=== PATIENT | female | born 1945 | race African-American/Black ===

== ENCOUNTER 2019-05-03 12:29 | Observation (INO) | payer MEDICARE, OTHER ==
[2019-05-03 13:41] VITALS: BP 116/71
[2019-05-03 13:47] VITALS: BP 116/71
[2019-05-03 15:31] LABS: EOSINOPHILS # (AUTO) 0.3 (0.0-0.4); EOSINOPHILS % 11.2 % (0.0-6.0); HEMATOCRIT 37.3 % (34.2-44.1); HEMOGLOBIN 11.8 g/dL (12.0-16.0); LYMPHOCYTES # (AUTO) 1.3 (1.0-3.2); LYMPHOCYTES % 42.4 % (18.0-39.1); MEAN CORPUSCULAR HEMOGLOBIN 23.5 pg (28-32); MEAN CORPUSCULAR HGB CONC 31.6 g/dL (31-35); MEAN CORPUSCULAR VOLUME 74.2 fL (81-99); MONOCYTES # (AUTO) 0.2 (0.2-0.8); MONOCYTES % 7.8 % (4.4-11.3); NEUTROPHILS # (AUTO) 1.1 (2.1-6.9); NEUTROPHILS % 37.3 % (38.7-80.0); PLATELET COUNT 207 x10e3/uL (140-360); RED BLOOD COUNT 5.03 x10e6/uL (3.6-5.1); RED CELL DISTRIBUTION WIDTH 15.6 % (11.7-14.4)
[2019-05-03 15:40] LABS: INR 0.93
[2019-05-03 15:46] VITALS: BP 116/71
[2019-05-03 15:48] LABS: ALANINE AMINOTRANSFERASE 25 IU/L (0-55); ALBUMIN 3.9 g/dL (3.5-5.0); ALBUMIN/GLOBULIN RATIO 1.5 (0.8-2.0); ALKALINE PHOSPHATASE 57 IU/L (40-150); ANION GAP 13.1 mmol/L (8-16); BLOOD UREA NITROGEN 15 mg/dL (7-26); BUN/CREATININE RATIO 17 (6-25); CALCIUM 9.6 mg/dL (8.4-10.2); CARBON DIOXIDE 26 mmol/L (22-29); CHLORIDE 106 mmol/L (98-107); CREATININE, SERUM 0.88 mg/dL (0.57-1.11); EST GLOMERULAR FILTRATION RATE > 60 ML/MIN (60-); GLUCOSE 101 mg/dL (74-118); POTASSIUM 4.1 mmol/L (3.5-5.1); SODIUM 141 mmol/L (136-145)
[2019-05-03] MEDS ORDERED: SODIUM CHLORIDE 0.9% 250ML 250 ML ONE (15:56)
[2019-05-03] MEDS: DOXYCYCLINE 100MG/NS 100ML 100 ML IV SCH (16:01)
[2019-05-03] MEDS: METHYLPREDNISOLONE SOD SUCC 125 MG/2ML VIAL IV SCH (16:01)
--- NOTE | 2019-05-03 16:05 | Diagnostic Imaging Report ---
EXAM: CHEST 2 VIEWS DATE: 05/03/2019 1:42 PM INDICATION: COPD, shortness of breath COMPARISON: None IMPRESSION: There is elevation of the left hemidiaphragm and increased opacities present within the left lower lung zone which may reflect atelectasis and/or small volume of pleural fluid. An underlying airspace process cannot be entirely excluded. There is blunting of the right costophrenic angle and a trace right pleural effusion is possible. There is no evidence for large focal consolidation or pneumothorax. Multiple surgical clips are noted projecting over the left hilum. The cardiac silhouette is not enlarged. No acute osseous abnormalities identified. Signed by: Dr. Apolinar Rankin MD on 05/03/2019 4:01 PM
--- NOTE | 2019-05-03 19:57 | NUR ---
RECEIVE DPT IN BED AOX3 RESPIRATIONS ARE EVEN AND UNLABORED DIMINISHED BREATH SOUND AT LEFT LUNG CALL SPEARS WITH IN REACH CONTINUE TO MONITOR
[2019-05-03 20:15] VITALS: BP 116/71
[2019-05-03 20:34] VITALS: BP 119/72
[2019-05-04] VITALS (7 sets, daily range): BP systolic 110–122; BP diastolic 59–67
[2019-05-04] MEDS: DOXYCYCLINE 100MG/NS 100ML 100 ML IV SCH (02:00)
[2019-05-04] MEDS: METHYLPREDNISOLONE SOD SUCC 125 MG/2ML VIAL IV SCH (02:35)
[2019-05-04] MEDS: ZOLPIDEM TARTRATE 5 MG TAB PO PRN ×2 (04:07→22:30)
--- NOTE | 2019-05-04 06:12 | NUR ---
PT RESTED DURING THE NIGHT .DENIES PAIN .CALL LIGHT WITH IN REACH .CONTINUE TO MONITOR
[2019-05-04] MEDS: ALBUTEROL SULF 0.083% NEB SOLN 3 ML NEB NEB PRN ×2 (07:00→11:38)
--- NOTE | 2019-05-04 07:04 | NUR ---
BEDSIDE REPORT GIVEN TO THE ONCOMING NURSE
--- NOTE | 2019-05-04 07:05 | NUR ---
walking rounds completed, received change of shift report from fmd teacher RN, pt in stable condition. will continue to monitor.
[2019-05-04] MEDS: BUDESONIDE/FORMOTEROL 160/4.5MCG INHALER INH SCH ×3 (07:10→19:00)
--- NOTE | 2019-05-04 07:29 | NUR ---
Dr. Lizama arrived on the unit; informed him that the prior day shift RN stated Dr. Lim would be consulted for pt, but as of now no order was placed in the computer. Dr. Lizama states he will assess the pt first.
[2019-05-04] MEDS: PANTOPRAZOLE SOD 40 MG TABEC PO SCH (07:30)
[2019-05-04] MEDS ORDERED: OMEPRAZOLE 20 MG CAP PO SCH (07:30)
[2019-05-04] MEDS ORDERED: AZITHROMYCIN 500MG/NS 250 ML 250 ML IV SCH (08:00)
--- NOTE | 2019-05-04 08:26 | NUR ---
pt awake, alert, oriented, being taken off unit for CT scan; left in stable condition.
[2019-05-04] MEDS ORDERED: CEFTRIAXONE SOD 1 GM/NS 50 ML 50 ML IV SCH (09:00)
--- NOTE | 2019-05-04 09:12 | Pre Op History & Physical ---
CHIEF COMPLAINT: Wheezing, difficulty breathing, and congestion. HISTORY OF PRESENT ILLNESS: The patient is a 73-year-old woman. She had a lobectomy around 20 years ago for a fungal infection in [place]. She also has COPD. She require hospitalization at [facility] 6 months ago for COPD exacerbation. She uses Brovana and budesonide at home twice a day to a nebulizer. She also uses rescue inhalers. She has oxygen at home. Yesterday, she came to the office complaining of worsening dyspnea and cough. She did not have any phlegm production. She had no fevers. She did not have chest pain. PAST SURGICAL HISTORY: 1. Status post lobectomy. 2. Status post hysterectomy. PAST MEDICAL HISTORY: Chronic obstructive pulmonary disease. SOCIAL HISTORY: The patient quit smoking. She is not an active drinker. FAMILY HISTORY: Family history is noncontributory. ALLERGIES: NO KNOWN DRUG ALLERGIES. REVIEW OF SYSTEMS: The patient is afebrile. The patient has some chronic weight loss over the years. She does not have sore throat. She has noted coughing or wheezing. She has no chest pain. She does not have any abdominal pain. She has no nausea or vomiting. She has no leg edema. PHYSICAL EXAMINATION: VITAL SIGNS: The patient is afebrile. The blood pressure is 122/60 and the saturation is 95% on 2 L. The pulse is 86. HEENT: Shows no facial swelling or erythema. CARDIAC: Reveals a regular rate and rhythm with normal S1, S2. There are no murmurs or rubs. LUNGS: Auscultation of lungs reveals a prolonged expiratory phase bilaterally. There is some wheezing. ABDOMEN: Soft, nontender. There is no rebound or guarding. EXTREMITIES: Show no leg edema or calf tenderness. There is no cyanosis or clubbing. SKIN: Shows no rashes. NEUROLOGICAL: Shows no focal abnormalities. LABORATORY DATA: White blood cell count is 2.95 and hemoglobin 11.8. The platelet count is 207. BUN to creatinine ratio is normal. The other electrolytes are within normal limits. RADIOGRAPHIC DATA: Chest x-ray shows some clips over the left hilum from prior surgery. There is some atelectasis in the left lower lung zone. IMPRESSION: 1. Chronic obstructive pulmonary disease with acute exacerbation. 2. Prior lobectomy for a fungal infection. PLAN: 1. Antibiotics and IV Solu-Medrol. 2. Bronchodilators. 3. CT scan of chest. 4. Assess nutritional status and give Ensure with each meal. 5. Continue oxygen. MD NALDO Plata/CHARLEEN /[id number]
--- NOTE | 2019-05-04 09:55 | Diagnostic Imaging Report ---
EXAMINATION: CT scan of the chest with contrast. TECHNIQUE: Spiral CT images of the chest were performed from the lung apices to the level of the adrenal glands after the intravenous administration of 100 cc Isovue-370. Coronal and sagittal reformatted images were obtained. COMPARISON: Chest radiograph 05/03/2019 CLINICAL HISTORY:Lower lobe infiltrate, prior lobectomy for fungal infection DISCUSSION: LINES/TUBES: None. LUNGS AND AIRWAYS: Advanced upper lung predominant emphysematous changes. Postsurgical changes of partial left pneumonectomy with associated volume loss and hemidiaphragmatic elevation, which accounts for the left lung base opacity described on the comparison chest radiograph. There is mild basal pleural thickening; however, no consolidation, sizable effusion, or pneumothorax. There is compensatory hyperinflation of the right lung which is otherwise without consolidation, bronchiectasis, or gross mass lesion. There is a small amount of mucinous debris in the trachea and right mainstem bronchus. Airways are otherwise patent. PLEURA: Left basal pleural thickening. No pleural effusion or pneumothorax. HEART AND MEDIASTINUM: Visualized thyroid gland is unremarkable. There is atherosclerotic calcification of the aortic arch, coronary arteries, and great vessel origins. Incidental note of a common origin of the innominate and left common carotid artery from the aortic arch. The pulmonary outflow tract is of normal caliber. There is no ectasia or aneurysmal dilatation of the thoracic aorta. Normal heart size without pericardial effusion. Multiple mediastinal surgical clips LYMPH NODES: No axillary, hilar, or mediastinal lymphadenopathy. ABDOMEN: The visualized portions of the liver, spleen, pancreatic tail, and left kidney are unremarkable. BONES AND SOFT TISSUES: No osseous destructive lesion or focal soft tissue abnormality. IMPRESSION: Postsurgical changes of partial left pneumonectomy with associated volume loss, ipsilateral mediastinal shift, and left basal pleural thickening with hemidiaphragmatic elevation, accounting for the left lower lung zone opacities described on the comparison chest radiograph. No consolidative pneumonia. Advanced upper lung predominant emphysematous changes. Atherosclerotic vascular disease. Signed by: Dr. Blair Soto M.D. on 05/04/2019 9:52 AM
--- NOTE | 2019-05-04 11:41 | NUR ---
pt c/o trouble breathing; called RT Kody to come to bedside for breathing treatment. pt's O2 sat 94% on 2L NC.
[2019-05-04] MEDS: METHYLPREDNISOLONE SOD SUCC 40 MG/ML VIAL 1ML IV SCH (14:40)
[2019-05-04] MEDS ORDERED: IOPAMIDOL 370 MG/ML 200 ML INFUS..BTL INJ ONE (14:43)
[2019-05-04] MEDS: CEFTRIAXONE SOD 1 GM/NS 50 ML 50 ML IV SCH (14:43)
--- NOTE | 2019-05-04 16:04 | NUR ---
spoke with PT who states pt was able to ambulate 140 feet, desatting to 91% but with rest and breathing exercises came up to 95%. pt was on 2L NC.
[2019-05-04 17:00] LABS: CLARITY,URINE SL CLOUDY (CLEAR); COLOR,URINE YELLOW (YELLOW)
[2019-05-04 17:01] LABS: BILIRUBIN,URINE NEGATIVE (NEGATIVE); KETONES,URINE NEGATIVE (NEGATIVE); LEUKOCYTE ESTERASE ,URINE TRACE (NEGATIVE); NITRITE,URINE NEGATIVE (NEGATIVE); PROTEIN,URINE DIPSTICK NEGATIVE (NEGATIVE); URINE UROBILINOGEN 0.2 mg/dL (0.2 - 1)
[2019-05-04 17:14] LABS: AMORPHOUS SEDIMENT,URINE MODERATE (FEW); BACTERIA,URINE MODERATE /HPF; EPITHELIAL CELLS,URINE FEW /LPF
--- NOTE | 2019-05-04 20:44 | NUR ---
RECEIVED PT IN BED AOX3 .RESPIRATIONS ARE EVEN AND UNLABORED .DENIES PAIN CALL LIGHT WITH IN REACH .CONTINUE TO MONITOR
[2019-05-05] VITALS (9 sets, daily range): BP systolic 112–122; BP diastolic 57–69
[2019-05-05] MEDS: METHYLPREDNISOLONE SOD SUCC 40 MG/ML VIAL 1ML IV SCH ×2 (02:37→14:42)
[2019-05-05] MEDS: CEFTRIAXONE SOD 1 GM/NS 50 ML 50 ML IV SCH ×2 (02:37→14:30)
--- NOTE | 2019-05-05 05:36 | NUR ---
PT RESTED DURING THE NIGHT AND DENIES PAIN .CALL LIGHT WITH IN REACH .CONTINUE TO MONITOR
[2019-05-05 05:48] LABS: EOSINOPHILS # (AUTO) 0.2 (0.0-0.4); EOSINOPHILS % 4.2 % (0.0-6.0); HEMATOCRIT 34.5 % (34.2-44.1); HEMOGLOBIN 10.7 g/dL (12.0-16.0); LYMPHOCYTES # (AUTO) 0.5 (1.0-3.2); LYMPHOCYTES % 8.6 % (18.0-39.1); MEAN CORPUSCULAR HEMOGLOBIN 22.8 pg (28-32); MEAN CORPUSCULAR VOLUME 73.6 fL (81-99); MONOCYTES # (AUTO) 0.2 (0.2-0.8); MONOCYTES % 3.3 % (4.4-11.3); NEUTROPHILS # (AUTO) 4.8 (2.1-6.9); NEUTROPHILS % 83.6 % (38.7-80.0); PLATELET COUNT 198 x10e3/uL (140-360); RED BLOOD COUNT 4.69 x10e6/uL (3.6-5.1); RED CELL DISTRIBUTION WIDTH 15.4 % (11.7-14.4)
[2019-05-05 06:07] LABS: ALANINE AMINOTRANSFERASE 22 IU/L (0-55); ALBUMIN 3.6 g/dL (3.5-5.0); ALBUMIN/GLOBULIN RATIO 1.5 (0.8-2.0); ALKALINE PHOSPHATASE 47 IU/L (40-150); ANION GAP 12.4 mmol/L (8-16); BLOOD UREA NITROGEN 20 mg/dL (7-26); BUN/CREATININE RATIO 24 (6-25); CALCIUM 9.4 mg/dL (8.4-10.2); CARBON DIOXIDE 23 mmol/L (22-29); CHLORIDE 107 mmol/L (98-107); CREATININE, SERUM 0.83 mg/dL (0.57-1.11); EST GLOMERULAR FILTRATION RATE > 60 ML/MIN (60-); GLUCOSE 129 mg/dL (74-118); POTASSIUM 4.4 mmol/L (3.5-5.1); SODIUM 138 mmol/L (136-145)
[2019-05-05] MEDS: ALBUTEROL SULF 0.083% NEB SOLN 3 ML NEB NEB PRN ×3 (06:30→21:00)
[2019-05-05] MEDS: BUDESONIDE/FORMOTEROL 160/4.5MCG INHALER INH SCH ×2 (06:41→20:20)
--- NOTE | 2019-05-05 07:09 | NUR ---
BEDSIDE REPORT GIVEN TO THE ONCOMING NURSE
--- NOTE | 2019-05-05 07:30 | NUR ---
MD IN TO SEE PATIENT, NEW ORDER RECEIVED.
[2019-05-05] MEDS: PANTOPRAZOLE SOD 40 MG TABEC PO SCH (07:44)
--- NOTE | 2019-05-05 10:14 | Progress Note ---
DATE: Pulmonary Critical Care Progress Note SUBJECTIVE: The patient is better. She has less wheezing and less cough. She still has some mild dyspnea. PHYSICAL EXAMINATION: VITAL SIGNS: The patient is afebrile. The vital signs are stable. HEENT: Shows no facial swelling or erythema. CARDIAC: Reveals a regular rate and rhythm with normal S1, S2. There are no murmurs or rubs. LUNGS: Auscultation of lungs reveals prolonged expiratory phase with a few faint wheezes. ABDOMEN: Soft, nontender. There is no rebound or guarding. EXTREMITIES: Show no leg edema. IMPRESSION: 1. Chronic obstructive pulmonary disease with acute exacerbation. 2. Prior lobectomy for fungal infection. 3. Moderate protein-calorie malnutrition. 4. Microcytic anemia secondary to chronic blood loss. PLAN: 1. Continue IV Solu-Medrol. 2. Continue antibiotics. 3. Continue nutritional supplementation. 4. The patient should have a GI evaluation, possibly as an outpatient. MD NALDO Plata/CHARLEEN /[id number]
--- NOTE | 2019-05-05 11:26 | NUR ---
PATIENT AMBULATED IN HALLWAY WITH PHYSICAL THERAPY, NO DISTRESS NOTED. WILL CLOSELY MONITOR.
[2019-05-05] MEDS ORDERED: AZITHROMYCIN 500MG/NS 250 ML 250 ML IV SCH (12:00)
--- NOTE | 2019-05-05 12:05 | NUR ---
DC PLAN: PT 2 DAY OBS. MCV 73.6, HGB 10.7. MD ORDERED GASTRO CONSULT. ORDER TO PLAN DC IN AM. SENT TO R1. PCTX case account ending in [id number] has been reviewed and completed by [facility] Physicians. Service Line: Level of Care (LOC) / Admission Status Review Initial patient type was submitted as: IO - Initial Observation PAS Recommendation: OU
--- NOTE | 2019-05-05 15:35 | NUR ---
IV INFILTRATED, REMOVED WITH TIP INTACT. NEW IV 20 GAUGE INSERTED TO LEFT FOREARM, PATIENT TOLERATED PROCEDURE WELL.
--- NOTE | 2019-05-05 16:01 | Consultation ---
DATE OF CONSULTATION: 05/05/2019 GI Consult Note REASON FOR CONSULT: Microcytic anemia. HISTORY OF PRESENTING ILLNESS: A 73 years old very pleasant, Afro-[place] female, who has a history of COPD, got admitted in the hospital with the COPD exacerbation. She is currently being treated under the supervision of Pulmonary Service. She has a history of lobectomy 20 years ago for some pulmonary fungal infection. The patient's blood work in the hospital revealed a hemoglobin of 10.7, hematocrit 34.5 with MCV of 73.6. GI is being consulted for evaluation of microcytic anemia. The patient at the moment her symptom is limited to the respiratory system. She denies any nausea, vomiting, diarrhea, or constipation. She has had a routine screening colonoscopy 10 years ago. The patient is not sure if she has had any polyp removed. Family history is negative for any colon cancer. She denies any epigastric pain, no prior history of peptic ulcer disease. She does not use any NSAIDs, on chronic basis. The patient never had any upper endoscopy. Weight remains stable. REVIEW OF SYSTEMS: A 12-point system reviewed, symptomatology is limited to respiratory system only. PAST SURGICAL HISTORY: Status post lobectomy, hysterectomy. PAST MEDICAL HISTORY: COPD. SOCIAL HISTORY: Quit smoking many years ago. Seldom drinks alcohol. Never used any illicit drugs. FAMILY HISTORY: Negative for any GI or PSYCHOLOGICAL SCIENCE PROFESSOR malignancies. ALLERGIES: NO KNOWN DRUG ALLERGIES. HOME MEDICATIONS: 1. Albuterol inhaler. 2. Azithromycin 500 mg IV daily. 3. Budesonide/formoterol inhaler. 4. Ceftriaxone 1 g q.12 hours. 5. Methylprednisolone 30 mg IV q.12 hours. 6. Pantoprazole 40 mg daily. 7. Zolpidem 5 mg at bedtime p.r.n. PHYSICAL EXAMINATION: VITAL SIGNS: Temperature 97.9, pulse 77, respirations 16, blood pressure 116/61, oxygen saturation 100% on 2 L of nasal cannula. GENERAL: Not in any acute distress, lip pursing. HEENT: Oral mucosa is moist. Mildly anicteric sclerae. No oral lesions. CVS: S1 and S2 regular. No gallop, murmur, or rubs. CHEST: Bilateral occasional scattered rhonchi. ABDOMEN: Soft, nondistended, and nontender. No palpable mass or hernia. Positive bowel sounds. EXTREMITIES: Warm. No leg edema. LABORATORY DATA: WBC 5.72, hemoglobin dropped from 11.8 to 10.7, hematocrit 34.5, MCV 73.6, and platelet count 198. Electrolytes normal. BUN 20 and creatinine 0.83. Liver enzymes normal. Influenza type A and B is negative. PT 13 and [address] 0[address]. [address] CT showed a postsurgical changes of partial left pneumonectomy with associated volume loss. Ipsilateral mediastinal shift and left basal pleural thickening with hemidiaphragmatic elevation, accounting for left lower lobe zone opacities described on comparison chest radiograph: 1. No consolidative pneumonia. 2. Advance upper lung predominant emphysematous changes. 3. Atherosclerotic vascular disease. IMPRESSION: 1. Microcytic anemia. 2. No gross gastrointestinal bleeding. 3. Chronic obstructive pulmonary disease exacerbation, currently being treated with antibiotic, bronchodilators as well as steroids. Pulmonary service is following the patient. PLAN: From GI standpoint, we will check stool for Hemoccult blood. I have given her my business card. Upper endoscopy as well as colonoscopy for evaluation of microcytic anemia will be done as an outpatient once the patient is stable from respiratory standpoint. I thank Dr. Lizama for allowing me to participate in the care of this patient. Shaq Swenson MD SA/CHARLEEN /[id number]
--- NOTE | 2019-05-05 17:47 | NUR ---
Nutrition Intervention Note RD Recommendation(s) for Physician: -Continue Ensure clear with each meal -Continue regular diet Plan of Care: RD following, monitoring for tolerance and adequacy Nutrition reason for involvement: consult for nutrition assessment RD Assessment (05/05/19) Pt is a 73 year old female admitted with COPD exacerbation. Pt stated she typically eats 50% of her meals. Per documentation in chart, pt consumed 75% of meals yesterday and today. Pt has been drinking Ensure clear during admission and stated she usually drinks Ensure at home. Offered pt Ensure Enlive, but pt wanted to continue receiving Ensure clear. No wt loss reported. Pt does not currently have a weight in chart; therefore, RD weighed pt using bedscale at time of visit. Pt had a bedscale wt of 85 lbs, but pt mentioned this was not accurate since she had weighed 97 lbs 2 days ago. Pt showed signs of mild/moderate muscle depletion in temporal, clavicle, and lower extremity regions. No N/V/D/C or chewing/swallowing issues at this time. Principal Problems/Diagnoses: COPD exacerbation PMH: COPD GI: flat, soft, nontender abdomen Skin: intact Labs: (05/05/19) Glucose 129 Meds: methylprednisolone, azithromycin, pantoprazole Ht: 63 inches Wt: 97 lbs (per pt) pt does not have a weight in chart for this admission BMI: 17.2 kg/m2 IBW: 115 lbs Malnutrition Evaluation (05/05/19) The patient does not meet criteria for a specified degree of malnutrition at this time. Will re-evaluate at follow-up as appropriate. Nutrition Prescription (Diet Order): Regular diet with Ensure clear TID Estimated Nutritional Needs: 1323 1543 calories/day (30-35 kcal/kg) Weight used: 97 lbs (pt stated wt) 66-88 g protein/day (1.5-2 g pro/kg) Weight used: 97 lbs (pt stated wt) Diet Adequacy: Meeting calorie needs, Meeting protein needs at this time per documentation of PO intake in chart Tolerance: Tolerating PO Diet Education Needs Assessment: Diet education not indicated; patient on regular diet. Nutrition Care Level: low Nutrition Diagnosis: Underweight related to predicted h/o inadequate energy intake as evidenced by BMI <18.5 kg/m2. Goal: Patient will meet 75-100% of estimated needs by follow up Progress: N/A Interventions: -General healthful diet, Commercial beverage Monitoring/Evaluation: -Total energy intake, Total protein intake, Liquid supplement, Weight change Signed: Mone Guevara RD, LD
--- NOTE | 2019-05-05 19:13 | NUR ---
BED SIDE REPORT GIVEN TO ON COMING NURSE.
--- NOTE | 2019-05-05 20:20 | NUR ---
PATIENT RESTING IN BED, NO SIGNS OF DISTRESS NOTED. NASAL CANNULA IS INTACT AND RUNNING AT 2 LITERS AND PATIENT VOICES NO PAIN AT THIS TIME. BED IS IN LOWEST POSITION, BOTH SIDE RAILS ARE UP, CALL LIGHT IS WITHIN EASY REACH, WILL CONTINUE TO MONITOR.
[2019-05-05] MEDS ORDERED: ACETAMINOPHEN 325 MG TAB PO PRN (21:00)
[2019-05-06 00:19] VITALS: BP 121/68
[2019-05-06] MEDS: ALBUTEROL SULF 0.083% NEB SOLN 3 ML NEB NEB PRN ×4 (00:40→11:06)
[2019-05-06] MEDS: CEFTRIAXONE SOD 1 GM/NS 50 ML 50 ML IV SCH (02:38)
[2019-05-06] MEDS: METHYLPREDNISOLONE SOD SUCC 40 MG/ML VIAL 1ML IV SCH (02:38)
[2019-05-06 04:10] VITALS: BP 119/63
[2019-05-06] MEDS: BUDESONIDE/FORMOTEROL 160/4.5MCG INHALER INH SCH (07:06)
--- NOTE | 2019-05-06 07:18 | NUR ---
PATIENT IN BED WITH HEAD OF BED ELEVATED RECEIVING NEB TREATMENT, NO DISTRESS NOTED. BED IN LOWER POSITION, CALL LIGHT AT REACH.
[2019-05-06 07:28] VITALS: BP 126/65
[2019-05-06 07:45] VITALS: BP 126/65
[2019-05-06] MEDS: PANTOPRAZOLE SOD 40 MG TABEC PO SCH (07:55)
--- NOTE | 2019-05-06 11:16 | NUR ---
PATIENT HAS A DISCHARGE ORDER. AWAITING FOR TRANSPORTATION. OUT OF BED TO CHAIR WATCHING TV. CALL LIGHT AT REACH.
[2019-05-06 11:33] VITALS: BP 132/64
--- NOTE | 2019-05-06 12:05 | NUR ---
PATIENT DISCHARGED HOME. DISCHARGE INSTRUCTIONS, PRESCRIPTIONS, AND FOLLOW UP GIVEN TO PATIENT AND DAUGHTER, THEY VERBALIZED UNDERSTANDING. IV TO LEFT FOREARM REMOVED WITH TIP INTACT. ALL PERSONAL ITEMS TAKEN WITH PATIENT. LEFT UNIT PER WHEEL CHAIR TO FRONT LOBBY IN STABLE CONDITION.
--- NOTE | 2019-05-07 04:18 | Discharge Summary ---
DISCHARGE DIAGNOSES: 1. Chronic obstructive pulmonary disease with acute exacerbation. 2. Anemia from chronic blood loss. CONSULTING PHYSICIAN: Dr. Shaq Swenson, of Gastroenterology. RADIOGRAPHIC DATA: CT scan of the chest showed postsurgical changes from a prior left pneumonectomy with associated volume loss. There was some left basal pleural thickening and hemidiaphragmatic elevation. There were no acute infiltrates. There were emphysematous changes in the upper lobes bilaterally. DISCHARGE MEDICATIONS: 1. Symbicort 2 puffs q.12. 2. Albuterol nebulizer as needed q.4. 3. Albuterol rescue inhaler 2 puffs q.4 hours as needed. 4. Prednisone taper. 5. Z-Nic. HISTORY OF PRESENT ILLNESS: The patient is a 73-year-old woman. She had a prior lobectomy 20 years ago for fungal infection in [place]. She has a history of COPD. She required hospitalization six months ago. She uses Brovana and budesonide nebulizers at home. She uses rescue inhalers as well as albuterol for rescue through a nebulizer at home. She also has oxygen at home. She comes in complaining of worsening dyspnea and cough. She did not respond to antibiotics and steroids as an outpatient. HOSPITAL COURSE: The patient was admitted. She received intravenous Solu-Medrol along with bronchodilators and antibiotics. She gradually improved with this. Her lab results showed anemia with microcytosis. She was evaluated by GI and arrangements were made for her to follow up as an outpatient for a workup for microcytic anemia. The patient was also evaluated by Nutrition. The patient received nutritional supplements. She felt better at the time of discharge. DISPOSITION: The patient will be discharged home. She will follow up with Dr. Lizama and Dr. Leela causey. Wallace Lizama MD [facility]/MODL /[id number]
--- OUTSIDE RECORDS SUMMARY | 2019-05-12 10:59 | XMS REPORT ---
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 Allergies, Adverse Reactions, Alerts Allergy Name Allergy Type Status Severity Reaction(s) Onset Date Inactive Date Treating Clinician Comments No Known Allergies DA Active U 2019-01-11 00:00:00 No Known Allergies DA Active U 2018-10-20 00:00:00 No Known Allergies DA Active U 2013-04-10 00:00:00 Medications This patient has no known medications. Encounters Start Date/Time End Date/Time Encounter Type Admission Type Attending Clinicians Care Facility Care Department Encounter ID 2017-06-09 08:36:42 2017-06-09 08:36:42 Emergency [facility] [id number] 2017-06-09 07:43:30 2017-06-09 07:43:30 Emergency [facility] [id number] 2017-06-09 07:02:43 2017-06-09 07:02:43 Emergency [facility] [id number] Results Test Description Test Time Test Comments Text Results Atomic Results Result Comments CT CHEST W 2019-05-04 09:35:00 [place] [address] Patient Name: BRII FAITH MR #: [id number] : 1945 Age/Sex: 73/F Req #: [id number] Adm Physician: AIYANA HOLLIDAY MD Ordered by: AIYANA HOLLIDAY MD Report #: [id number] Location: MED/SURG3 Room/Bed: 296-1 Procedure: [id number] CT/CT CHEST W Exam Date: 05/04/19 Exam Time: 0842 REPORT STATUS: Signed EXAMINATION: CT scan of the chest with contrast. TECHNIQUE: Sp iral CT images of the chest were performed from the lung apices to the level of the adrenal glands after the intravenous administration of 100 cc Isovue- 370. Coronal and sagittal reformatted images were obtained. COMPARISON: Chest radiograph 05/03/2019 CLINICAL HISTORY:Lower lobe infiltrate, prior lobectomy for fungal infection DISCUSSION: LINES/TUBES: None. LUNGS AND AIRWAYS: Advanced upper lung predominant emphysematous changes. Postsurgical changes of partial left pneumonectomy with associated volume loss and hemidiaphragmatic elevation, which accounts for the left lung base opacity described on the comparison chest radiograph. There is mild basal pleural thickening; however, no consolidation, sizable effusion, or pneumothorax. There is compensatory hyperinflation of the right lung which is otherwise without consolidation, bronchiectasis, or gross mass lesion. There is a small amount of mucinous debris in the trachea and right mainstem bronchus. Airways are otherwise patent. PLEURA: Left basal pleural thickening. No pleural effusion or pneumothorax. HEART AND MEDIASTINUM: Visualized thyroid gland is unremarkable. There is atherosclerotic calcification of the aortic arch, coronary arteries, and great vessel origins. Incidental note of a common origin of the innominate and left common carotid artery from the aortic arch. The pulmonary outflow tract is of normal caliber. There is no ectasia or aneurysmal dilatation of the thoracic aorta. Normal heart size without pericardial effusion. Multiple mediastinal surgical clips LYMPH NODES: No axillary, hilar, or mediastinal lymphadenopathy. ABDOMEN: The visualized portions of the liver, spleen, pancreatic tail, and left kidney are unremarkable. BONES AND SOFT TISSUES: No osseous destructive lesion or focal soft tissue abnormality. IMPRESSION: Postsurgical changes of partial left pneumonectomy with associated volume loss, ipsilateral medi astinal shift, and left basal pleural thickening with hemidiaphragmatic elevation, accounting for the left lower lung zone opacities described on the comparison chest radiograph. No consolidative pneumonia. Advanced upper lung predominant emphysematous changes. Atherosclerotic vascular disease. Signed by: Dr. Tashia Soto M.D. on 05/04/2019 9:52 AM Dictated By: TASHIA SOTO MD 1 Transcribed By: LUIS on 05/04/19951 COPY TO: AIYANA HOLLIDAY MD CHEST 2 VIEWS 2019-05-03 15:56:00 [place] [address] Patient Name: BRII FAITH MR #: [id number] : 1945 Age/Sex: 73/F Req #: [id number] Adm Physician: AIYANA HOLLIDAY MD Ordered by: AIYANA HOLLIDAY MD Report #: [id number] Location: MED/SURG3 Room/Bed: [facility] Procedure: [id number] DX/CHEST 2 VIEWS Exam Date: 05/03/19 Exam Time: 1540 REPORT STATUS: Signed EXAM: CHEST 2 VIEWS DATE: 05/03/2019 1:42 PM INDICATION: COPD, shortness of breath COMPARISON: None IMPRESSION: There is elevation of the left hemidiaphragm and increased opacities present within the left lower lung zone which may reflect atelectasis and/or small volume of pleural fluid. An underlying airspace process cannot be entirely excluded. There is blunting of the right costophrenic angle and a trace right pleural effusion is possible. There is no evidence for large focal consolidation or pneumothorax. Multiple surgical clips are noted projecting over the left hilum. The cardiac silhouette is not enlarged. No acute osseous abnormalities identified. Signed by: Dr. Apolinar Rankin MD on 05/03/2019 4:01 PM Dictated By: APOLINAR RANKIN MD 1601 Transcribed By: LUIS on 05/03/19 1601 COPY TO: AIYANA HOLLIDAY MD B-TYPE NATRIURETIC PEPTIDE 2019-01-19 08:10:00 B-TYPE NATRIURETIC PEPTIDE (test code=BNP) 15.44 pgram/mL 0-100 BASIC METABOLIC [id number] 07:27:00* Test Item Value Reference Range Comments SODIUM (test code=NA) 134 mmol/L 136-145 POTASSIUM (test code=K) 4.8 mmol/L 3.5-5.1 CHLORIDE (test code=CL) 100.0 mmol/L 98-107 CARBON DIOXIDE (test code=CO2) 27.0 mmol/L 21-32 ANION GAP (test code=GAP) 11.8 10-20 GLUCOSE (test code=GLU) 158 mg/dL 74-106 BLOOD UREA NITROGEN (test code=BUN) 18 mg/dL 7-18 GLOMERULAR FILTRATION RATE (test code=GFR) > 60 mL/min >=60 Estimated GFR by using Modified MDRD formula.Chronic kidney disease is defined as either kidney damageor GFR <60 mL/min/1.73 m2 for >3 months. CREATININE (test code=CREAT) 0.70 mg/dL 0.55-1.02 Note change in reference range due to change in reagent. BUN/CREATININE RATIO (test code=BUN/CREA) 24.8 10-20 CALCIUM (test code=CA) 9.4 mg/dL 8.5-10.1 BASIC METABOLIC [id number] 07:20:00* Test Item Value Reference Range Comments SODIUM (test code=NA) 134 mmol/L 136-145 POTASSIUM (test code=K) 4.8 mmol/L 3.5-5.1 CHLORIDE (test code=CL) 100.0 mmol/L 98-107 CARBON DIOXIDE (test code=CO2) mmol/L 21-32 ANION GAP (test code=GAP) 10-20 GLUCOSE (test code=GLU) mg/dL 74-106 BLOOD UREA NITROGEN (test code=BUN) mg/dL 7-18 GLOMERULAR FILTRATION RATE (test code=GFR) mL/min >=60 CREATININE (test code=CREAT) mg/dL 0.55-1.02 BUN/CREATININE RATIO (test code=BUN/CREA) 10-20 CALCIUM (test code=CA) mg/dL 8.5-10.1 CBC W/AUTO [id number] 07:15:00* Test Item Value Reference Range Comments WHITE BLOOD CELL (test code=WBC) 4.6 K/mm3 4.5-12.5 RED BLOOD CELL (test code=RBC) 4.77 mill/mm3 3.7-5.2 HEMOGLOBIN (test code=HGB) 11.1 gram/dL 11.5-15.5 HEMATOCRIT (test code=HCT) 34.9 % 36.0-46.0 MEAN CELL VOLUME (test code=MCV) 73.2 fL 80-98 MEAN CELL HGB (test code=MCH) 23.3 picogram 27.0-33.0 MEAN CELL HGB CONCETRATION (test code=MCHC) 31.8 gram/dL 33.0-36.0 RED CELL DISTRIBUTION WIDTH (test code=RDW) 15.4 % 11.6-16.2 RED CELL DISTRIBUTION WIDTH SD (test code=RDW-SD) 39.8 fL 37.0-51.0 PLATELET COUNT (test code=PLT) 253 K/mm3 150-450 MEAN PLATELET VOLUME (test code=MPV) 11.4 fL 6.7-11.0 NEUTROPHIL % (test code=NT%) 83.7 % 39.0-69.0 IMMATURE GRANULOCYTE % (test code=IG%) 0.7 % 0.0-5.0 LYMPHOCYTE % (test code=LY%) 11.3 % 25.0-55.0 MONOCYTE % (test code=MO%) 4.3 % 0.0-10.0 EOSINOPHIL % (test code=EO%) 0.0 % 0.0-5.0 BASOPHIL % (test code=BA%) 0.0 % 0.0-1.0 NUCLEATED RBC % (test code=NRBC%) 0.0 % 0-0 NEUTROPHIL # (test code=NT#) 3.85 K/mm3 1.8-7.7 IMMATURE GRANULOCYTE # (test code=IG#) 0.03 x10 3/uL 0-0.03 LYMPHOCYTE # (test code=LY#) 0.52 K/mm3 1.0-5.0 MONOCYTE # (test code=MO#) 0.20 K/mm3 0-0.8 EOSINOPHIL # (test code=EO#) 0.00 K/mm3 0.0-0.5 BASOPHIL # (test code=BA#) 0.00 K/mm3 0.0-0.2 NUCLEATED RBC # (test code=NRBC#) 0.00 K/mm3 0.0-0.1 MANUAL DIFF REQUIRED (test code=MDIFF) NO BASIC METABOLIC [id number] 07:20:00* Test Item Value Reference Range Comments SODIUM (test code=NA) 136 mmol/L 136-145 POTASSIUM (test code=K) 4.7 mmol/L 3.5-5.1 CHLORIDE (test code=CL) 100.0 mmol/L 98-107 CARBON DIOXIDE (test code=CO2) 29.0 mmol/L 21-32 ANION GAP (test code=GAP) 11.7 10-20 GLUCOSE (test code=GLU) 130 mg/dL 74-106 BLOOD UREA NITROGEN (test code=BUN) 25 mg/dL 7-18 RESULT VERIFIED BY REPEAT ANALYSIS GLOMERULAR FILTRATION RATE (test code=GFR) > 60 mL/min >=60 Estimated GFR by using Modified MDRD formula.Chronic kidney disease is defined as either kidney damageor GFR <60 mL/min/1.73 m2 for >3 months. CREATININE (test code=CREAT) 0.80 mg/dL 0.55-1.02 Note change in reference range due to change in reagent. BUN/CREATININE RATIO (test code=BUN/CREA) 31.3 10-20 CALCIUM (test code=CA) 9.5 mg/dL 8.5-10.1 BASIC METABOLIC [id number] 06:39:00* Test Item Value Reference Range Comments SODIUM (test code=NA) 136 mmol/L 136-145 POTASSIUM (test code=K) 4.7 mmol/L 3.5-5.1 CHLORIDE (test code=CL) 100.0 mmol/L 98-107 CARBON DIOXIDE (test code=CO2) mmol/L 21-32 ANION GAP (test code=GAP) 10-20 GLUCOSE (test code=GLU) mg/dL 74-106 BLOOD UREA NITROGEN (test code=BUN) mg/dL 7-18 GLOMERULAR FILTRATION RATE (test code=GFR) mL/min >=60 CREATININE (test code=CREAT) mg/dL 0.55-1.02 BUN/CREATININE RATIO (test code=BUN/CREA) 10-20 CALCIUM (test code=CA) mg/dL 8.5-10.1 CBC W/AUTO [id number] 05:26:00* Test Item Value Reference Range Comments WHITE BLOOD CELL (test code=WBC) 4.7 K/mm3 4.5-12.5 RED BLOOD CELL (test code=RBC) 4.67 mill/mm3 3.7-5.2 HEMOGLOBIN (test code=HGB) 11.0 gram/dL 11.5-15.5 HEMATOCRIT (test code=HCT) 34.7 % 36.0-46.0 MEAN CELL VOLUME (test code=MCV) 74.3 fL 80-98 MEAN CELL HGB (test code=MCH) 23.6 picogram 27.0-33.0 MEAN CELL HGB CONCETRATION (test code=MCHC) 31.7 gram/dL 33.0-36.0 RED CELL DISTRIBUTION WIDTH (test code=RDW) 15.4 % 11.6-16.2 RED CELL DISTRIBUTION WIDTH SD (test code=RDW-SD) 40.8 fL 37.0-51.0 PLATELET COUNT (test code=PLT) 224 K/mm3 150-450 MEAN PLATELET VOLUME (test code=MPV) 10.0 fL 6.7-11.0 NEUTROPHIL % (test code=NT%) 85.0 % 39.0-69.0 IMMATURE GRANULOCYTE % (test code=IG%) 0.4 % 0.0-5.0 LYMPHOCYTE % (test code=LY%) 9.5 % 25.0-55.0 MONOCYTE % (test code=MO%) 5.1 % 0.0-10.0 EOSINOPHIL % (test code=EO%) 0.0 % 0.0-5.0 BASOPHIL % (test code=BA%) 0.0 % 0.0-1.0 NUCLEATED RBC % (test code=NRBC%) 0.0 % 0-0 NEUTROPHIL # (test code=NT#) 4.01 K/mm3 1.8-7.7 IMMATURE GRANULOCYTE # (test code=IG#) 0.02 x10 3/uL 0-0.03 LYMPHOCYTE # (test code=LY#) 0.45 K/mm3 1.0-5.0 MONOCYTE # (test code=MO#) 0.24 K/mm3 0-0.8 EOSINOPHIL # (test code=EO#) 0.00 K/mm3 0.0-0.5 BASOPHIL # (test code=BA#) 0.00 K/mm3 0.0-0.2 NUCLEATED RBC # (test code=NRBC#) 0.00 K/mm3 0.0-0.1 MANUAL DIFF REQUIRED (test code=MDIFF) NO BASIC METABOLIC [id number] 08:29:00* Test Item Value Reference Range Comments SODIUM (test code=NA) 136 mmol/L 136-145 POTASSIUM (test code=K) 4.4 mmol/L 3.5-5.1 CHLORIDE (test code=CL) 102.0 mmol/L 98-107 CARBON DIOXIDE (test code=CO2) 27.0 mmol/L 21-32 ANION GAP (test code=GAP) 11.4 10-20 GLUCOSE (test code=GLU) 137 mg/dL 74-106 BLOOD UREA NITROGEN (test code=BUN) 19 mg/dL 7-18 GLOMERULAR FILTRATION RATE (test code=GFR) > 60 mL/min >=60 Estimated GFR by using Modified MDRD formula.Chronic kidney disease is defined as either kidney damageor GFR <60 mL/min/1.73 m2 for >3 months. CREATININE (test code=CREAT) 0.70 mg/dL 0.55-1.02 Note change in reference range due to change in reagent. BUN/CREATININE RATIO (test code=BUN/CREA) 26.8 10-20 CALCIUM (test code=CA) 9.6 mg/dL 8.5-10.1 BASIC METABOLIC [id number] 08:20:00* Test Item Value Reference Range Comments SODIUM (test code=NA) 136 mmol/L 136-145 POTASSIUM (test code=K) 4.4 mmol/L 3.5-5.1 CHLORIDE (test code=CL) 102.0 mmol/L 98-107 CARBON DIOXIDE (test code=CO2) mmol/L 21-32 ANION GAP (test code=GAP) 10-20 GLUCOSE (test code=GLU) mg/dL 74-106 BLOOD UREA NITROGEN (test code=BUN) mg/dL 7-18 GLOMERULAR FILTRATION RATE (test code=GFR) mL/min >=60 CREATININE (test code=CREAT) mg/dL 0.55-1.02 BUN/CREATININE RATIO (test code=BUN/CREA) 10-20 CALCIUM (test code=CA) mg/dL 8.5-10.1 CBC W/AUTO [id number] 08:00:00* Test Item Value Reference Range Comments WHITE BLOOD CELL (test code=WBC) 4.4 K/mm3 4.5-12.5 RED BLOOD CELL (test code=RBC) 4.68 mill/mm3 3.7-5.2 HEMOGLOBIN (test code=HGB) 11.1 gram/dL 11.5-15.5 HEMATOCRIT (test code=HCT) 35.0 % 36.0-46.0 MEAN CELL VOLUME (test code=MCV) 74.8 fL 80-98 MEAN CELL HGB (test code=MCH) 23.7 picogram 27.0-33.0 MEAN CELL HGB CONCETRATION (test code=MCHC) 31.7 gram/dL 33.0-36.0 RED CELL DISTRIBUTION WIDTH (test code=RDW) 15.5 % 11.6-16.2 RED CELL DISTRIBUTION WIDTH SD (test code=RDW-SD) 41.2 fL 37.0-51.0 PLATELET COUNT (test code=PLT) 232 K/mm3 150-450 MEAN PLATELET VOLUME (test code=MPV) 10.4 fL 6.7-11.0 NEUTROPHIL % (test code=NT%) 88.7 % 39.0-69.0 IMMATURE GRANULOCYTE % (test code=IG%) 0.2 % 0.0-5.0 LYMPHOCYTE % (test code=LY%) 8.4 % 25.0-55.0 MONOCYTE % (test code=MO%) 2.7 % 0.0-10.0 EOSINOPHIL % (test code=EO%) 0.0 % 0.0-5.0 BASOPHIL % (test code=BA%) 0.0 % 0.0-1.0 NUCLEATED RBC % (test code=NRBC%) 0.0 % 0-0 NEUTROPHIL # (test code=NT#) 3.93 K/mm3 1.8-7.7 IMMATURE GRANULOCYTE # (test code=IG#) 0.01 x10 3/uL 0-0.03 LYMPHOCYTE # (test code=LY#) 0.37 K/mm3 1.0-5.0 MONOCYTE # (test code=MO#) 0.12 K/mm3 0-0.8 EOSINOPHIL # (test code=EO#) 0.00 K/mm3 0.0-0.5 BASOPHIL # (test code=BA#) 0.00 K/mm3 0.0-0.2 NUCLEATED RBC # (test code=NRBC#) 0.00 K/mm3 0.0-0.1 MANUAL DIFF REQUIRED (test code=MDIFF) NO - XR CHEST 1 [id number] 08:05:00 FAX: Mark Layne MD [place]: B St: ADM FAX: Nicole Harrison NP [phone] Name: BRII FAITH [facility] : 1945 Age/S: 73/F [address] [facility] Unit #: [id number] Loc: [address] [place] [id number] Phys: Nicole Harrison NP Acct: [id number] Dis Date: Status: ADM IN PHONE #: [phone] Exam Date: 01/14/2019 0746 FAX #: [phone] Reason: COPD EXAMS: CPT CODE: [id number] XR CHEST 1 V [id number] REASON FOR EXAM: COPD Exam Order Date: 01/14/2019 5:00 AM Ordering Eileen: Nicole Harrison NP PROCEDURE: - XR CHEST 1 V COMPARISON: Frontal chest x-ray January 11, 2019 CT of the chest October 11, 2018 was also reviewed FINDINGS: Right lung is hyperinflated and there is flattening of the right hemidiaphragm, similar to the previous exam. Postsurgical changes of left upper lobectomy with elevation of the left hemidiaphragm are redemonstrated. Both lungs are clear. Cardiomediastinal silhouette is normal in size for technique. Atherosclerotic disease in the aortic arch is unchanged. Musculoskeletal structures are within normal limits. The visualized upper abdomen is within normal limits. IMPRESSION: No acute cardiopulmonary process. Persistent hype rexpansion of the lungs with flattening of the diaphragm may represent a n air-trapping process. Stable postsurgical changes of left upper lobect norman. at 0805 * * Reported and signed by: Donavan Bautista MD CC: Mark Lim; Nicole Harrison NP Technologist: Kailee Choe (R); RT NIRAJ(R) Trnscrd Date/Time/By: 01/14/2019 (804) : By: [email or web address] [facility] Print D/T: S: 01/14/2019 (0809) PAGE 1 Signed Report BASIC METABOLIC [id number] 08:06:00* Test Item Value Reference Range Comments SODIUM (test code=NA) 141 mmol/L 136-145 POTASSIUM (test code=K) 4.5 mmol/L 3.5-5.1 CHLORIDE (test code=CL) 109.0 mmol/L 98-107 CARBON DIOXIDE (test code=CO2) 27.0 mmol/L 21-32 ANION GAP (test code=GAP) 9.5 10-20 GLUCOSE (test code=GLU) 90 mg/dL 74-106 BLOOD UREA NITROGEN (test code=BUN) 18 mg/dL 7-18 GLOMERULAR FILTRATION RATE (test code=GFR) > 60 mL/min >=60 Estimated GFR by using Modified MDRD formula.Chronic kidney disease is defined as either kidney damageor GFR <60 mL/min/1.73 m2 for >3 months. CREATININE (test code=CREAT) 0.80 mg/dL 0.55-1.02 Note change in reference range due to change in reagent. BUN/CREATININE RATIO (test code=BUN/CREA) 22.5 10-20 CALCIUM (test code=CA) 8.8 mg/dL 8.5-10.1 BASIC METABOLIC [id number] 07:57:00* Test Item Value Reference Range Comments SODIUM (test code=NA) 141 mmol/L 136-145 POTASSIUM (test code=K) 4.5 mmol/L 3.5-5.1 CHLORIDE (test code=CL) 109.0 mmol/L 98-107 CARBON DIOXIDE (test code=CO2) mmol/L 21-32 ANION GAP (test code=GAP) 10-20 GLUCOSE (test code=GLU) mg/dL 74-106 BLOOD UREA NITROGEN (test code=BUN) mg/dL 7-18 GLOMERULAR FILTRATION RATE (test code=GFR) mL/min >=60 CREATININE (test code=CREAT) mg/dL 0.55-1.02 BUN/CREATININE RATIO (test code=BUN/CREA) 10-20 CALCIUM (test code=CA) mg/dL 8.5-10.1 CBC W/AUTO [id number] 07:47:00* Test Item Value Reference Range Comments WHITE BLOOD CELL (test code=WBC) 3.7 K/mm3 4.5-12.5 RED BLOOD CELL (test code=RBC) 4.26 mill/mm3 3.7-5.2 HEMOGLOBIN (test code=HGB) 10.0 gram/dL 11.5-15.5 HEMATOCRIT (test code=HCT) 32.4 % 36.0-46.0 MEAN CELL VOLUME (test code=MCV) 76.1 fL 80-98 MEAN CELL HGB (test code=MCH) 23.5 picogram 27.0-33.0 MEAN CELL HGB CONCETRATION (test code=MCHC) 30.9 gram/dL 33.0-36.0 RED CELL DISTRIBUTION WIDTH (test code=RDW) 15.9 % 11.6-16.2 RED CELL DISTRIBUTION WIDTH SD (test code=RDW-SD) 43.3 fL 37.0-51.0 PLATELET COUNT (test code=PLT) 189 K/mm3 150-450 MEAN PLATELET VOLUME (test code=MPV) 10.1 fL 6.7-11.0 NEUTROPHIL % (test code=NT%) 44.6 % 39.0-69.0 IMMATURE GRANULOCYTE % (test code=IG%) 0.3 % 0.0-5.0 LYMPHOCYTE % (test code=LY%) 41.9 % 25.0-55.0 MONOCYTE % (test code=MO%) 8.9 % 0.0-10.0 EOSINOPHIL % (test code=EO%) 3.5 % 0.0-5.0 BASOPHIL % (test code=BA%) 0.8 % 0.0-1.0 NUCLEATED RBC % (test code=NRBC%) 0.0 % 0-0 NEUTROPHIL # (test code=NT#) 1.65 K/mm3 1.8-7.7 IMMATURE GRANULOCYTE # (test code=IG#) 0.01 x10 3/uL 0-0.03 LYMPHOCYTE # (test code=LY#) 1.55 K/mm3 1.0-5.0 MONOCYTE # (test code=MO#) 0.33 K/mm3 0-0.8 EOSINOPHIL # (test code=EO#) 0.13 K/mm3 0.0-0.5 BASOPHIL # (test code=BA#) 0.03 K/mm3 0.0-0.2 NUCLEATED RBC # (test code=NRBC#) 0.00 K/mm3 0.0-0.1 MANUAL DIFF REQUIRED (test code=MDIFF) NO LACTIC [id number] 06:02:00* Test Item Value Reference Range Comments LACTIC ACID (test code=LACT) 0.9 mmol/L 0.4-1.9 LACTIC [id number] 03:07:00* Test Item Value Reference Range Comments LACTIC ACID (test code=LACT) 2.1 mmol/L 0.4-1.9 Results called to [id number] by CARIN 01/12/19 0307Critical results verified and read back by Nurse? Y SPECIMEN COMMENTS: repeat if >2 repeat in 3 hours.ARTERIAL BLOOD [id number] 21:32:00* Test Item Value Reference Range Comments ARTERIAL BLOOD GAS PH (test code=PHA) 7.38 7.35-7.45 ARTERIAL BLOOD GAS PCO2 (test code=PCO2A) 29.3 mm Hg 35-45 ARTERIAL BLOOD GAS PO2 (test code=PO2A) 77.9 mmHg 80-100 BICARBONATE TOTAL HCO3 (test code=HCO3) 16.8 mmol/L 23.0-27.0 BASE EXCESS (test code=GERARDO) -7.1 mmol/L -3.0-5.0 Results called to and read back by [employer] : - 01/11/2019; by mr ABG O2 SATURATION (test code=SATA) 93.8 % 90.0-98.0 ABG TYPE (test code=TYPEA) Arterial FIO2 (test code=FIO2A) 32.0 ABG SITE (test code=SITEA) Lt BRACHIAL ARTERY MODIFIED ALLENS (test code=MODALL) Yes CHECK PERFORMED HEMATOCRIT (test code=HCT/ABG) 35 % 35-47 TOTAL HGB (test code=THB) 11.8 gram/dL 11.5-15.5 HGB O2 SAT (test code=HBOSAT) 93.1 % 94.00-98.00 CARBOXYHEMOGLOBIN (test code=HOHGBT) 0.1 %totalHg 0.5-1.5 Results called to and read back by [employer] : - 01/11/2019; by mr METHEMOGLOBIN (test code=METHGB) 0.6 % 0.0-1.50 O2 CONTENT (test code=O2CT) 15.5 % vol 18.0-22.0 - XR CHEST 1 [id number] 17:05:00 FAX: Mark Layne MD [place]: [place] St: REG FAX: Johnathan Davila [phone] Name: BRII FAITH [facility] : 1945 Age/S: 73/F [address] [facility] [address] Unit #: [id number] Loc: [address] Phys: Johnathan Davila MD [place], [place] [address] Acct: [id number] Dis Date: Status: REG ER PHONE #: Exam Date: 01/11/2019 2538 FAX #: Reason: Shortness of Breath EXAMS: CPT CODE: [id number] XR CHEST 1 V [id number] REASON FOR EXAM: Shortness of Breath Exam Order Date: 01/11/2019 4:14 PM Ordering M.Ellis: Johnathan Davila MD PROCEDURE: - XR CHEST 1 V COMPARISON: Noncontrast CT chest October 11, 2018 FINDINGS: The lungs are hyperinflated with emphysematous changes in both lungs. Surgical clips overlying the left hilum are redemonstrated, likely from prior left upper lobectomy. No acute airspace disease is seen. Cardiac mediastinal silhouette is at the upper limits of normal in size. Atherosclerosis is redemonstrated in the aorta. No acute bone around it. Visualized upper abdomen is within normal limits. IMPRESSION: No acute cardiopulmonary process. Stable post surgical changes of left upper lobectomy. at 1708 Reported and signed by: Donavan Bautista MD CC: Mark Lim; Johnathan Davila MD Technologist: June Avila RT(R)(CT) Trnscrd Date/Time/By: 01/11/2019 (3072) : By: [email or web address] [facility] Print D/T: S: 01/11/2019 (8976) P AGE 2 Signed Report LACTIC [id number] 16:49:00* Test Item Value Reference Range Comments LACTIC ACID (test code=LACT) 0.9 MMOL/L 0.4-1.9 SPECIMEN COMMENTS: repeat if >2 repeat in 3 hours.BASIC METABOLIC PANEL 2019-01-11 16:46:00* Test Item Value Reference Range Comments SODIUM (test code=NA) 136 mmol/L 128-145 POTASSIUM (test code=K) 3.9 mmol/L 3.5-5.1 CHLORIDE (test code=CL) 100.0 mmol/L 98-107 CARBON DIOXIDE (test code=CO2) 27.9 mmol/L 22-29 ANION GAP (test code=GAP) 12 mmol/L 10-20 GLUCOSE (test code=GLU) 102 mg/dL 70-110 BLOOD UREA NITROGEN (test code=BUN) 15 mg/dL 7-22 GLOMERULAR FILTRATION RATE (test code=GFR) > 60 mL/min >=60 Estimated GFR by using Modified MDRD formula.Chronic kidney disease is defined as either kidney damageor GFR <60 mL/min/1.73 m2 for >3 months. CREATININE (test code=CREAT) 0.78 mg/dL 0.55-1.3 BUN/CREATININE RATIO (test code=BUN/CREA) 19.2 10-20 CALCIUM (test code=CA) 9.5 mg/dL 8.0-10.5 [id number] 16:46:00* Test Item Value Reference Range Comments TROPONIN-I (test code=TROPI) 0.03 ng/mL 0.00-0.056 B-TYPE NATRIURETIC [id number] 16:45:00* Test Item Value Reference Range Comments B-TYPE NATRIURETIC PEPTIDE (test code=BNP) 38.4 pg/mL 0-100 PROTHROMBIN [id number] 16:44:00* Test Item Value Reference Range Comments PROTHROMBIN TIME PATIENT (test code=PTP) 10.3 seconds 9.0-13.0 INTERNATIONAL NORMAL RATIO (test code=INR) 1.1 0.8-1.2 The therapeutic range for oral anticoagulant therapy [employer] is an international normalized ratio (INR)of between 2.0 and 3.0. The recommended therapeutic INRrange for various clinical situations is listed below: Clinical Situation INR range Pulmonary e mbolism treatment (2.0-3.0)Venous thrombosis treatmentVenous thrombosis prophylaxis (high risk surgery)Prevention of systemic embolism from: Acute myocardial infarction Valvular heart disease Atrial fibrillation Mechanical prosthetic heart valves (2.5-3.5) IS PATIENT ON ANTICOAGULANTS? NTHROMBOPLASTIN TIME [id number] 16:44:00* Test Item Value Reference Range Comments THROMBOPLASTIN TIME PARTIAL (test code=PTT) 29.3 seconds 25.5-34.3 Therapeutic Range for patients on Heparin Therapy is 2 to2.5 times their baseline PTT level. IS PATIENT ON ANTICOAGULANTS? [id number] 16:44:00* Test Item Value Reference Range Comments D-DIMER (test code=DDIMER) < 100 ng/ml < 600 IS PATIENT ON ANTICOAGULANTS? NPROTHROMBIN [id number] 16:40:00* Test Item Value Reference Range Comments PROTHROMBIN TIME PATIENT (test code=PTP) 10.3 seconds 9.0-13.0 INTERNATIONAL NORMAL RATIO (test code=INR) 1.1 0.8-1.2 The therapeutic range for oral anticoagulant therapy [employer] indications is an international normalized ratio (INR)of between 2.0 and 3.0. The recommended therapeutic INRrange for various clinical situations is listed below: Clinical Situation INR range Pulmonary e mbolism treatment (2.0-3.0)Venous thrombosis treatmentVenous thrombosis prophylaxis (high risk surgery)Prevention of systemic embolism from: Acute myocardial infarction Valvular heart disease Atrial fibrillation Mechanical prosthetic heart valves (2.5-3.5) IS PATIENT ON ANTICOAGULANTS? NTHROMBOPLASTIN TIME [id number] 16:40:00* Test Item Value Reference Range Comments THROMBOPLASTIN TIME PARTIAL (test code=PTT) 29.3 seconds 25.5-34.3 Therapeutic Range for patients on Heparin Therapy is 2 to2.5 times their baseline PTT level. IS PATIENT ON ANTICOAGULANTS? [id number] 16:40:00* Test Item Value Reference Range Comments D-DIMER (test code=DDIMER) ng/ml < 600 IS PATIENT ON ANTICOAGULANTS? NBASIC METABOLIC [id number] 16:40:00* Test Item Value Reference Range Comments SODIUM (test code=NA) 136 mmol/L 128-145 POTASSIUM (test code=K) 3.9 mmol/L 3.5-5.1 CHLORIDE (test code=CL) 100.0 mmol/L 98-107 CARBON DIOXIDE (test code=CO2) 27.9 mmol/L 22-29 ANION GAP (test code=GAP) 12 mmol/L 10-20 GLUCOSE (test code=GLU) 102 mg/dL 70-110 BLOOD UREA NITROGEN (test code=BUN) 15 mg/dL 7-22 GLOMERULAR FILTRATION RATE (test code=GFR) > 60 mL/min >=60 Estimated GFR by using Modified MDRD formula.Chronic kidney disease is defined as either kidney damageor GFR <60 mL/min/1.73 m2 for >3 months. CREATININE (test code=CREAT) 0.78 mg/dL 0.55-1.3 BUN/CREATININE RATIO (test code=BUN/CREA) 19.2 10-20 CALCIUM (test code=CA) 9.5 mg/dL 8.0-10.5 [id number] 16:40:00* Test Item Value Reference Range Comments TROPONIN-I (test code=TROPI) ng/mL 0-0.045 CBC W/O [id number] 16:28:00* Test Item Value Reference Range Comments WHITE BLOOD CELL (test code=WBC) 3.8 K/mm3 4.5-12.5 RED BLOOD CELL (test code=RBC) 5.04 mill/mm3 3.7-5.2 HEMOGLOBIN (test code=HGB) 11.8 gram/dL 11.5-15.5 HEMATOCRIT (test code=HCT) 38.0 % 36.0-46.0 MEAN CELL VOLUME (test code=MCV) 75.4 fL 80-98 MEAN CELL HGB (test code=MCH) 23.4 picogram 27.0-33.0 MEAN CELL HGB CONCETRATION (test code=MCHC) 31.1 gram/dL 33.0-36.0 RED CELL DISTRIBUTION WIDTH (test code=RDW) 15.9 % 11.6-16.2 RED CELL DISTRIBUTION WIDTH SD (test code=RDW-SD) 43.2 fL 37.0-51.0 PLATELET COUNT (test code=PLT) 212 K/mm3 150-450 MEAN PLATELET VOLUME (test code=MPV) 9.5 fL 6.7-11.0 BASIC METABOLIC [id number] 07:14:00* Test Item Value Reference Range Comments SODIUM (test code=NA) 137 mmol/L 136-145 POTASSIUM (test code=K) 4.7 mmol/L 3.5-5.1 CHLORIDE (test code=CL) 104.0 mmol/L 98-107 CARBON DIOXIDE (test code=CO2) 27.0 mmol/L 21-32 ANION GAP (test code=GAP) 10.7 10-20 GLUCOSE (test code=GLU) 90 mg/dL 74-106 BLOOD UREA NITROGEN (test code=BUN) 15 mg/dL 7-18 GLOMERULAR FILTRATION RATE (test code=GFR) > 60 mL/min >=60 Estimated GFR by using Modified MDRD formula.Chronic kidney disease is defined as either kidney damageor GFR <60 mL/min/1.73 m2 for >3 months. CREATININE (test code=CREAT) 0.70 mg/dL 0.55-1.02 Note change in reference range due to change in reagent. BUN/CREATININE RATIO (test code=BUN/CREA) 21.4 10-20 CALCIUM (test code=CA) 9.4 mg/dL 8.5-10.1 [id number] 07:14:00* Test Item Value Reference Range Comments PHOSPHORUS (test code=PHOS) 4.5 mg/dL 2.5-4.9 [id number] 07:14:00* Test Item Value Reference Range Comments MAGNESIUM (test code=MAG) 2.3 mg/dL 1.8-2.4 BASIC METABOLIC [id number] 06:58:00* Test Item Value Reference Range Comments SODIUM (test code=NA) 137 mmol/L 136-145 POTASSIUM (test code=K) 4.7 mmol/L 3.5-5.1 CHLORIDE (test code=CL) 104.0 mmol/L 98-107 CARBON DIOXIDE (test code=CO2) mmol/L 21-32 ANION GAP (test code=GAP) 10-20 GLUCOSE (test code=GLU) mg/dL 74-106 BLOOD UREA NITROGEN (test code=BUN) mg/dL 7-18 GLOMERULAR FILTRATION RATE (test code=GFR) mL/min >=60 CREATININE (test code=CREAT) mg/dL 0.55-1.02 BUN/CREATININE RATIO (test code=BUN/CREA) 10-20 CALCIUM (test code=CA) mg/dL 8.5-10.1 [id number] 06:58:00* Test Item Value Reference Range Comments PHOSPHORUS (test code=PHOS) mg/dL 2.5-4.9 [id number] 06:58:00* Test Item Value Reference Range Comments MAGNESIUM (test code=MAG) mg/dL 1.8-2.4 BASIC METABOLIC [id number] 06:03:00* Test Item Value Reference Range Comments SODIUM (test code=NA) 135 mmol/L 136-145 POTASSIUM (test code=K) 5.1 mmol/L 3.5-5.1 CHLORIDE (test code=CL) 102.0 mmol/L 98-107 CARBON DIOXIDE (test code=CO2) 29.0 mmol/L 21-32 ANION GAP (test code=GAP) 9.1 10-20 GLUCOSE (test code=GLU) 84 mg/dL 74-106 BLOOD UREA NITROGEN (test code=BUN) 19 mg/dL 7-18 GLOMERULAR FILTRATION RATE (test code=GFR) > 60 mL/min >=60 Estimated GFR by using Modified MDRD formula.Chronic kidney disease is defined as either kidney damageor GFR <60 mL/min/1.73 m2 for >3 months. CREATININE (test code=CREAT) 0.80 mg/dL 0.55-1.02 Note change in reference range due to change in reagent. BUN/CREATININE RATIO (test code=BUN/CREA) 23.8 10-20 CALCIUM (test code=CA) 9.5 mg/dL 8.5-10.1 BASIC METABOLIC [id number] 05:54:00* Test Item Value Reference Range Comments SODIUM (test code=NA) 135 mmol/L 136-145 POTASSIUM (test code=K) 5.1 mmol/L 3.5-5.1 CHLORIDE (test code=CL) 102.0 mmol/L 98-107 CARBON DIOXIDE (test code=CO2) mmol/L 21-32 ANION GAP (test code=GAP) 10-20 GLUCOSE (test code=GLU) mg/dL 74-106 BLOOD UREA NITROGEN (test code=BUN) mg/dL 7-18 GLOMERULAR FILTRATION RATE (test code=GFR) mL/min >=60 CREATININE (test code=CREAT) mg/dL 0.55-1.02 BUN/CREATININE RATIO (test code=BUN/CREA) 10-20 CALCIUM (test code=CA) mg/dL 8.5-10.1 CBC W/AUTO [id number] 05:38:00* Test Item Value Reference Range Comments WHITE BLOOD CELL (test code=WBC) K/mm3 4.5-12.5 RED BLOOD CELL (test code=RBC) mill/mm3 3.7-5.2 HEMOGLOBIN (test code=HGB) gram/dL 11.5-15.5 HEMATOCRIT (test code=HCT) % 36.0-46.0 MEAN CELL VOLUME (test code=MCV) fL 80-98 MEAN CELL HGB (test code=MCH) picogram 27.0-33.0 MEAN CELL HGB CONCETRATION (test code=MCHC) gram/dL 33.0-36.0 RED CELL DISTRIBUTION WIDTH (test code=RDW) % 11.6-16.2 RED CELL DISTRIBUTION WIDTH SD (test code=RDW-SD) fL 37.0-51.0 PLATELET COUNT (test code=PLT) K/mm3 150-450 MEAN PLATELET VOLUME (test code=MPV) fL 6.7-11.0 NEUTROPHIL % (test code=NT%) % 39.0-69.0 IMMATURE GRANULOCYTE % (test code=IG%) % 0.0-5.0 LYMPHOCYTE % (test code=LY%) % 25.0-55.0 MONOCYTE % (test code=MO%) % 0.0-10.0 EOSINOPHIL % (test code=EO%) % 0.0-5.0 BASOPHIL % (test code=BA%) % 0.0-1.0 NEUTROPHIL # (test code=NT#) K/mm3 1.8-7.7 LYMPHOCYTE # (test code=LY#) K/mm3 1.0-5.0 MONOCYTE # (test code=MO#) K/mm3 0-0.8 EOSINOPHIL # (test code=EO#) K/mm3 0.0-0.5 BASOPHIL # (test code=BA#) K/mm3 0.0-0.2 MANUAL DIFF REQUIRED (test code=MDIFF) NO CBC W/AUTO [id number] 05:38:00* Test Item Value Reference Range Comments WHITE BLOOD CELL (test code=WBC) 3.3 K/mm3 4.5-12.5 RED BLOOD CELL (test code=RBC) 4.98 mill/mm3 3.7-5.2 HEMOGLOBIN (test code=HGB) 11.8 gram/dL 11.5-15.5 HEMATOCRIT (test code=HCT) 38.2 % 36.0-46.0 MEAN CELL VOLUME (test code=MCV) 76.7 fL 80-98 MEAN CELL HGB (test code=MCH) 23.7 picogram 27.0-33.0 MEAN CELL HGB CONCETRATION (test code=MCHC) 30.9 gram/dL 33.0-36.0 RED CELL DISTRIBUTION WIDTH (test code=RDW) 15.2 % 11.6-16.2 RED CELL DISTRIBUTION WIDTH SD (test code=RDW-SD) 41.9 fL 37.0-51.0 PLATELET COUNT (test code=PLT) 229 K/mm3 150-450 MEAN PLATELET VOLUME (test code=MPV) 10.5 fL 6.7-11.0 NEUTROPHIL % (test code=NT%) 41.0 % 39.0-69.0 IMMATURE GRANULOCYTE % (test code=IG%) 0.6 % 0.0-5.0 LYMPHOCYTE % (test code=LY%) 43.3 % 25.0-55.0 MONOCYTE % (test code=MO%) 11.7 % 0.0-10.0 EOSINOPHIL % (test code=EO%) 2.5 % 0.0-5.0 BASOPHIL % (test code=BA%) 0.9 % 0.0-1.0 NUCLEATED RBC % (test code=NRBC%) 0.0 % 0-0 NEUTROPHIL # (test code=NT#) 1.34 K/mm3 1.8-7.7 IMMATURE GRANULOCYTE # (test code=IG#) 0.02 x10 3/uL 0-0.03 LYMPHOCYTE # (test code=LY#) 1.41 K/mm3 1.0-5.0 MONOCYTE # (test code=MO#) 0.38 K/mm3 0-0.8 EOSINOPHIL # (test code=EO#) 0.08 K/mm3 0.0-0.5 BASOPHIL # (test code=BA#) 0.03 K/mm3 0.0-0.2 NUCLEATED RBC # (test code=NRBC#) 0.00 K/mm3 0.0-0.1 MANUAL DIFF REQUIRED (test code=MDIFF) NO LUPUS ANTICOAGULANT [id number] 14:56:00* Test Item Value Reference Range Comments PT 1:2 MIX (test code=PTMIX2) seconds Dilute Prothrombin Time(dPT): 38.0 sec (0.0 - 55.0)dPT Confirm Ratio: 1.05 Ratio (0.00 - 1.40) RVVT PATIENT (test code=RVVTPAT) 28.7 sec 0.0-47.0 PTT LONG ACTING (test code=PTTLA) 31.8 sec 0.0-51.9 THROMBIN TIME (test code=TT) 20.1 sec 0.0-23.0 Test performed at: [place] [address] LUPUS ANTICOAGULANT PANEL (test code=LUPPT) SEE REFERENCE REPORT Lupus Reflex Interpretation:No lupus anticoagulant was detected. IS PATIENT ON ANTICOAGULANTS? NLUPUS ANTICOAGULANT [id number] 03:08:00* Test Item Value Reference Range Comments PROTHROMBIN TIME PATIENT (test code=PTP) seconds 9.0-14.0 INTERNATIONAL NORMAL RATIO (test code=INR) 0.8-1.2 PT 1:2 MIX (test code=PTMIX2) seconds RVVT PATIENT (test code=RVVTPAT) 28.7 sec 0.0-47.0 RVVT PATIENT MIX (test code=RVVTPATM) RVVT PATIENT CONFIRM (test code=RVVTPATMC) PTT LONG ACTING (test code=PTTLA) 31.8 sec 0.0-51.9 PTT LONG ACTING MIX (test code=PTTLAM) PTT LONG ACTING INCUB MIX (test code=PTTLAMI) THROMBIN TIME (test code=TT) 20.1 sec 0.0-23.0 Test performed at: [place] [address] LUPUS ANTICOAGULANT PANEL (test code=LUPPT) IS PATIENT ON ANTICOAGULANTS? NLUPUS (LE) [id number] 09:16:00* Test Item Value Reference Range Comments AB DNA DOUBLE STRAND (test code=DNADSAB) 1 IU/mL 0-9 Negative <5 Equivocal 5 - 9 Positive >9 AB DEDE/TUBE BENDING MACHINE OPERATOR FRACTION (test code=RNPAB) <0.2 AI 0.0-0.9 AB DEDE/SM FRACTION (test code=SMAB) <0.2 AI 0.0-0.9 AB SJOGRENS A/SSA (test code=SJAAB) <0.2 AI 0.0-0.9 AB SJOGRENS B/SSB (test code=SJBAB) <0.2 AI 0.0-0.9 ANTINUCLEAR ANTIBODIES [id number] 09:16:00* Test Item Value Reference Range Comments SMILEY SCREEN (test code=ANASCR) LUPUS (LE) [id number] 09:16:00* Test Item Value Reference Range Comments AB DNA DOUBLE STRAND (test code=DNADSAB) 1 IU/mL 0-9 Negative <5 Equivocal 5 - 9 Positive >9 AB DEDE/TUBE BENDING MACHINE OPERATOR FRACTION (test code=RNPAB) <0.2 AI 0.0-0.9 AB DEDE/SM FRACTION (test code=SMAB) <0.2 AI 0.0-0.9 AB SJOGRENS A/SSA (test code=SJAAB) <0.2 AI 0.0-0.9 AB SJOGRENS B/SSB (test code=SJBAB) <0.2 AI 0.0-0.9 ANTINUCLEAR ANTIBODIES [id number] 09:16:00* Test Item Value Reference Range Comments SMILEY SCREEN (test code=ANASCR) Negative Negative Performed At: [facility] [address] [id number] Jabier Rangel MD Ph:[phone] - CT CHEST W/O [id number] 21:10:00 Name: BRII FAITH [facility] : 1945 Age/S: 73 / F [address] [facility] Unit #: [id number] Loc: [place] [address] Phys: Nicole Harrison 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 COMPARISON: None available. CT chest without contrast: Automated exposure control. Bullous changes with COPD with upper lobe predominance. No lung mass or nodules. No bronchiectasis, honeycombing or fibrosis or endobronchial lesions. Scarring. No acute infiltrates, effusion or congestion. Unremarkable unopacified aorta and pulmonary arteries. Unremarkable thyroid glands. Esophageal wall is not thickened. No pathologic adenopathy. Cardiac silhouette is mildly enlarged without pericardial effusion. Visualized upper abdomen is unremarkable. Subcutaneous tissues and the m usculature are normal in appearance. No subcutaneous fat is noted. Patie nt appears emaciated. No lytic or blastic lesions are noted within the ejffy ny skeleton. DJD. IMPRESSION: COPD with upper lobe predominance without acute infiltrates, effusion or congestion. No mass or nodules. No bronchiectasis, honeycombing or fibrosis. at 2109 Reported and signed by: Macario Villegas M.D. CC: Mark Lim; Nicole Harrison NP Technologist:Velma Mcdonald RT( R) CTDI: DLP: Trnscb Date/Time: 10/11/2018 (2109) t.SDR .TH4 Orig Print D/T: S: 10/11/2018 (2112) PAGE 1 Signed Report SED RATE 2018-10-11 12:25:00* Test Item Value Reference Range Comments SED RATE (test code=SEDW) 2 mm/hr 0-20 WINTROBE METHOD: NORMAL RANGE FOR MEN: 0-9 MM/HR WOMAN: 0-20 MM/HR SED RATE [id number] 12:24:00* Test Item Value Reference Range Comments SED RATE [facility] (test code=SEDW) 2 mm/hr 0-20 - XR SWLW [facility] W/C [id number] 11:23:00 FAX: Mark Layne MD [place]: B St: ADM Name: BRII MARKS [facility] : [birth year] Age/S: 73/F [address] Unit #: [id number] Loc: [address] [place] [address] Phys: Mark Lim MD Acct: [id number] Dis Date: Status: ADM IN PHONE #: [phone] Exam Date: 10/11/2018 1040 FAX #: [phone] Reason: MODIFIED BARIUM SWALLOW EXAMS: CPT CODE: [id number] XR SWLW FUNC W/C V 67956 TECHNIQUE - XR SWLW FUNC W/C V . COMPARISON: None provided. HISTORY: 73 years Female MODIFIED BARIUM SWALLOW FINDINGS: 0.9 minutes fluoroscopy time. 2.5 mg. No aspiration or pene tration. Please see the speech pathologist dictation. IMPR ESSION: 0.9 minutes fluoroscopy time. 2.5 mg. No aspir ation or penetration. Please see the speech pathologist dictation. at 1123 Reported and signed by: Iona Le M.D. CC: Mark Ray am Technologist: ARAVIND WESTBROOK RT(R) Trnscrd Date/Time/By: 10/11/2018 (1120) : By: Kyleigh Alexandre Print D/T: S: 10/11/2018 (9429) PAGE 1 Signed Report CBC W/AUTO [id number] 05:39:00* Test Item Value Reference Range Comments WHITE BLOOD CELL (test code=WBC) 3.2 K/mm3 4.5-12.5 RED BLOOD CELL (test code=RBC) 5.24 mill/mm3 3.7-5.2 HEMOGLOBIN (test code=HGB) 12.3 gram/dL 11.5-15.5 HEMATOCRIT (test code=HCT) 39.6 % 36.0-46.0 MEAN CELL VOLUME (test code=MCV) 75.6 fL 80-98 MEAN CELL HGB (test code=MCH) 23.5 picogram 27.0-33.0 MEAN CELL HGB CONCETRATION (test code=MCHC) 31.1 gram/dL 33.0-36.0 RED CELL DISTRIBUTION WIDTH (test code=RDW) 15.2 % 11.6-16.2 RED CELL DISTRIBUTION WIDTH SD (test code=RDW-SD) 41.2 fL 37.0-51.0 PLATELET COUNT (test code=PLT) 217 K/mm3 150-450 MEAN PLATELET VOLUME (test code=MPV) 9.4 fL 6.7-11.0 NEUTROPHIL % (test code=NT%) 39.3 % 39.0-69.0 IMMATURE GRANULOCYTE % (test code=IG%) 0.3 % 0.0-5.0 LYMPHOCYTE % (test code=LY%) 45.8 % 25.0-55.0 MONOCYTE % (test code=MO%) 10.6 % 0.0-10.0 EOSINOPHIL % (test code=EO%) 3.1 % 0.0-5.0 BASOPHIL % (test code=BA%) 0.9 % 0.0-1.0 NUCLEATED RBC % (test code=NRBC%) 0.0 % 0-0 NEUTROPHIL # (test code=NT#) 1.26 K/mm3 1.8-7.7 IMMATURE GRANULOCYTE # (test code=IG#) 0.01 x10 3/uL 0-0.03 LYMPHOCYTE # (test code=LY#) 1.47 K/mm3 1.0-5.0 MONOCYTE # (test code=MO#) 0.34 K/mm3 0-0.8 EOSINOPHIL # (test code=EO#) 0.10 K/mm3 0.0-0.5 BASOPHIL # (test code=BA#) 0.03 K/mm3 0.0-0.2 NUCLEATED RBC # (test code=NRBC#) 0.00 K/mm3 0.0-0.1 MANUAL DIFF REQUIRED (test code=MDIFF) NO BASIC METABOLIC [id number] 05:19:00* Test Item Value Reference Range Comments SODIUM (test code=NA) 136 mmol/L 136-145 POTASSIUM (test code=K) 4.2 mmol/L 3.5-5.1 CHLORIDE (test code=CL) 100.0 mmol/L 98-107 CARBON DIOXIDE (test code=CO2) 28.0 mmol/L 21-32 ANION GAP (test code=GAP) 12.2 10-20 GLUCOSE (test code=GLU) 98 mg/dL 74-106 BLOOD UREA NITROGEN (test code=BUN) 18 mg/dL 7-18 GLOMERULAR FILTRATION RATE (test code=GFR) > 60 mL/min >=60 Estimated GFR by using Modified MDRD formula.Chronic kidney disease is defined as either kidney damageor GFR <60 mL/min/1.73 m2 for >3 months. CREATININE (test code=CREAT) 0.80 mg/dL 0.55-1.02 Note change in reference range due to change in reagent. BUN/CREATININE RATIO (test code=BUN/CREA) 22.5 10-20 CALCIUM (test code=CA) 9.6 mg/dL 8.5-10.1 [id number] 05:19:00* Test Item Value Reference Range Comments PHOSPHORUS (test code=PHOS) 4.5 mg/dL 2.5-4.9 [id number] 05:19:00* Test Item Value Reference Range Comments MAGNESIUM (test code=MAG) 2.1 mg/dL 1.8-2.4 CALCIUM [id number] 05:19:00* Test Item Value Reference Range Comments CALCIUM IONIZED (test code=LY) 1.44 mmol/L 1.12-1.32 BASIC METABOLIC [id number] 05:14:00* Test Item Value Reference Range Comments SODIUM (test code=NA) 136 mmol/L 136-145 POTASSIUM (test code=K) 4.2 mmol/L 3.5-5.1 CHLORIDE (test code=CL) 100.0 mmol/L 98-107 CARBON DIOXIDE (test code=CO2) mmol/L 21-32 ANION GAP (test code=GAP) 10-20 GLUCOSE (test code=GLU) mg/dL 74-106 BLOOD UREA NITROGEN (test code=BUN) mg/dL 7-18 GLOMERULAR FILTRATION RATE (test code=GFR) mL/min >=60 CREATININE (test code=CREAT) mg/dL 0.55-1.02 BUN/CREATININE RATIO (test code=BUN/CREA) 10-20 CALCIUM (test code=CA) mg/dL 8.5-10.1 [id number] 05:14:00* Test Item Value Reference Range Comments PHOSPHORUS (test code=PHOS) mg/dL 2.5-4.9 [id number] 05:14:00* Test Item Value Reference Range Comments MAGNESIUM (test code=MAG) mg/dL 1.8-2.4 CALCIUM [id number] 05:14:00* Test Item Value Reference Range Comments CALCIUM IONIZED (test code=LY) 1.44 mmol/L 1.12-1.32 BASIC METABOLIC [id number] 05:06:00* Test Item Value Reference Range Comments SODIUM (test code=NA) mmol/L 136-145 POTASSIUM (test code=K) mmol/L 3.5-5.1 CHLORIDE (test code=CL) mmol/L 98-107 CARBON DIOXIDE (test code=CO2) mmol/L 21-32 ANION GAP (test code=GAP) 10-20 GLUCOSE (test code=GLU) mg/dL 74-106 BLOOD UREA NITROGEN (test code=BUN) mg/dL 7-18 GLOMERULAR FILTRATION RATE (test code=GFR) mL/min >=60 CREATININE (test code=CREAT) mg/dL 0.55-1.02 BUN/CREATININE RATIO (test code=BUN/CREA) 10-20 CALCIUM (test code=CA) mg/dL 8.5-10.1 [id number] 05:06:00* Test Item Value Reference Range Comments PHOSPHORUS (test code=PHOS) mg/dL 2.5-4.9 [id number] 05:06:00* Test Item Value Reference Range Comments MAGNESIUM (test code=MAG) mg/dL 1.8-2.4 CALCIUM [id number] 05:06:00* Test Item Value Reference Range Comments CALCIUM IONIZED (test code=LY) 1.44 mmol/L 1.12-1.32 - CTA [id number] 22:55:00 Name: BRII FAITH [facility] : 1945 Age/S: 73 / F [address] [facility] Unit #: [id number] Loc: [place] [address] Phys: Leela Alexander MD Acct: [id number] Dis Date: Status: ADM IN PHONE #: [phone] Exam Date: 10/10/20182246 FAX #: [phone] Reason: BILATERAL BLEEDS EXAMS: CPT CODE: [id number] CTA HEAD 24306 HISTORY: Bilateral bleeds. COMPARISON: None available. CTA tangirnaq of Ortega: 3-D images NOT available. 100 mL of Isovue-370. Automated exposure control. Intracranial vertebral arteries are patent. Basilar artery is patent. Superior cerebellar arteries are patent. Both MICA SIZER are patent with origin on the left. Posterior communicating artery is patent on the right and absent on the left. Anterior communicating artery is patent. Bilateral petrous, cavernous and the supraclinoid ICA remains patent with atherosclerotic change. Both DEBORAH are widely patent. Both MCA are widely patent. No aneurysm is visible. Dural sinuses are well-opacified. IMPRESSION: No aneurysm visible. Patent tangirnaq of Ortega with the exception of left posterior communicating artery which is absent. origin of the left MICA SIZER. at 4214 Reported and signed by: Macario Villegas M.D. CC: Mark Lim; Leela Alexander MD Technologist:Velma Mcdonald RT(R); MIMI Lord CTDI: DLP: Trnscb Date/Time: 10/10/2018 (8723) t.SDR.TH4 Orig Print D/T: S: 10/10/2018 (3140) PAGE 1 Signed Report - MRI BRAIN W/O [id number] 16:06:00 FAX: Mark Layne MD [place]: B St: [facility] FAX: Leela Orosco MD [phone] Name: BRII FAITH [facility] : 1945 Age/S: 73/F [address] Unit #: [id number] Loc: [place] [address] Phys: Leela Alexander MD Acct: [id number] Dis Date: Status: ADM IN PHONE #: [phone] Exam Date: 10/10/2018 1604 FAX #: [phone] Reason: slurred speech EXAMS: CPT CODE: [id number] MRI BRAIN W/O CONTRAST 93931 TECHNIQUE - MRI BRAIN W/O CONTRAST . MRI of the brain with and w ithout contrast. COMPARISON: CT brain 10/10/2018 HISTORY: 73 years Female slurred speech FINDINGS: Supra-tentorial and Posterior fossa: Ac [place] hematoma left basal ganglia measures approximately [address] and mild surrounding edema. No mass effect. No change since the previo us CT scan 10/10/2018 at 0433 hours. Subacute/chronic hematoma ante rior right temporal lobe measuring at least 1.2 cm with high T1 and high T 2 signal. No mass effect. Best seen on series 10. Image 15. Old ischemic changes basal ganglia bilaterally. No acute ischemic change. Volume loss and small vessel white matter ischemic changes.. No midline shift. Cervical medullary junction: No abn ormalities. Ventricles and basal cisterns: No hydrocephalus. Basa l cisterns are normal. Sella and para-sellar structures: No pituitary enlargement or mass. Extra-axial structures: No extra-ax ial mass, hematoma, or fluid collections. Paranasal Sinuses: Mucosal thickening of paranasal sinuses. Mastoids: No abnormaliti es. Osseous structures: No abnormalities. PAGE 1 Signed Report (CONTINUED) FAX: Tawana Layne MD [place]: B St: [facility] FAX: Leela Orosco MD [phone] Name: BRII FAITH [facility] [place] : 1945 Age/S: 73/F [address] Unit #: [id number] Loc: V.S03 KIKI [place] [address] P hys: Leela Alexander MD Acct: V [id number] Dis Date: Status: ADM IN PHONE #: [phone] Exam Date: 10/10/2018 1600 FAX #: [phone] Reason: slurred speech EXAMS: CPT CODE: [id number] MRI BRAIN W/O CONTRAST 27078 <Continued> Visualized Orbits: No abnormalities. Vascular structures: Normal flow void in the major intracranial arterial and venous cir culation. IMPRESSION: Acute hematoma left basal ganglia measures approximately 1 cm greatest diameter and mild surroundi ng edema. No mass effect. No change since the previous CT scan 10/10/2018 at 0433 hours. 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 No m ass effect. Best seen on series 10. Image 15. 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 No acute ischemic change. at 1606 Reported and signed by: Iona Le M.D. CC: Mark Lim; Leela Alexander MD Technologist: [facility] [employer] - [facility] Date/Time/By: 10/10/2018 (3262) : By: Luis EduardoO Orig Print D/T: S: 10/10/2018 (9429) PAGE 2 Signed Report [id number] 05:46:00* Test Item Value Reference Range Comments GLYCOSYLATED HEMOGLOBIN (HA1C) (test code=GLYHGB) 6.2 % HbA1 4.8-6.0 ESTIMATED AVERAGE GLUCOSE (test code=EAG) 131 MG/DL BASIC METABOLIC [id number] 05:28:00* Test Item Value Reference Range Comments SODIUM (test code=NA) 136 mmol/L 136-145 POTASSIUM (test code=K) 4.2 mmol/L 3.5-5.1 CHLORIDE (test code=CL) 102.0 mmol/L 98-107 CARBON DIOXIDE (test code=CO2) 25.0 mmol/L 21-32 ANION GAP (test code=GAP) 13.2 10-20 GLUCOSE (test code=GLU) 80 mg/dL 74-106 BLOOD UREA NITROGEN (test code=BUN) 10 mg/dL 7-18 GLOMERULAR FILTRATION RATE (test code=GFR) > 60 mL/min >=60 Estimated GFR by using Modified MDRD formula.Chronic kidney disease is defined as either kidney damageor GFR <60 mL/min/1.73 m2 for >3 months. CREATININE (test code=CREAT) 0.70 mg/dL 0.55-1.02 Note change in reference range due to change in reagent. BUN/CREATININE RATIO (test code=BUN/CREA) 14.3 10-20 CALCIUM (test code=CA) 9.4 mg/dL 8.5-10.1 LIPID PROFILE (CORONARY RISK)2018-10-10 05:28:00* Test Item Value Reference Range Comments TRIGLYCERIDES (test code=TRIG) 43 mg/dL 20-150 CHOLESTEROL (test code=CHOL) 211 mg/dL 0-200 CHOLESTEROL/HDL RATIO (test code=CHOLHDL) 1.0 RATIO 0-4.9 RISK ASSOCIATED WITH CHOL/HDL RATIOS: Risk Male Female1/2 AVERAGE 3.43 3.27AVERAGE 4.97 4.442X AVERAGE 9.55 7.053X AVERAGE 23.39 11.04 REFERENCE VALUE IS RELATED TO RISK LEVELS ASRECOMMENDED BY THE [facility]. HEART, LUNG, AND BLOOD INST. HDL CHOLESTEROL (test code=HDL) 109 mg/dL 40-60 LIPOPROTEIN LDL (test code=LDL) 97 mg/dL 100-129 Reference Interval: mg/dL mmol/L Optimal <100 <2.6Near/above optimal 100-129 2.6- 3.3Borderline High 130-159 3.4-4.1High 160-189 4.1-4.9Very High >=190 >=4.9=========This LDL result is a direct measurement.========= [id number] 05:28:00* Test Item Value Reference Range Comments PHOSPHORUS (test code=PHOS) 3.8 mg/dL 2.5-4.9 [id number] 05:28:00* Test Item Value Reference Range Comments MAGNESIUM (test code=MAG) 2.0 mg/dL 1.8-2.4 THYROID PROFILE [id number] 05:28:00* Test Item Value Reference Range Comments T3 UPTAKE (test code=T3UP) 39.0 % 30.0-40.0 T4 (THYROXINE) (test code=T4) 7.4 ug/dL 4.5-13.9 T7 (FREE THYROXINE INDEX) (test code=T7) 2.88 FTI 1.3-5.1 THYROID STIMULATING HORMONE (test code=TSH) 0.955 uIU/mL 0.36-3.74 TSH REFERENCE RANGES: EUTHYROID: 0.35 - 4.3 mIU/mL HYPO : > 5.5 mIU/mL HYPER : < 0.35 mIU/mL BASIC METABOLIC [id number] 05:10:00* Test Item Value Reference Range Comments SODIUM (test code=NA) 136 mmol/L 136-145 POTASSIUM (test code=K) 4.2 mmol/L 3.5-5.1 CHLORIDE (test code=CL) 102.0 mmol/L 98-107 CARBON DIOXIDE (test code=CO2) mmol/L 21-32 ANION GAP (test code=GAP) 10-20 GLUCOSE (test code=GLU) mg/dL 74-106 BLOOD UREA NITROGEN (test code=BUN) mg/dL 7-18 GLOMERULAR FILTRATION RATE (test code=GFR) mL/min >=60 CREATININE (test code=CREAT) mg/dL 0.55-1.02 BUN/CREATININE RATIO (test code=BUN/CREA) 10-20 CALCIUM (test code=CA) mg/dL 8.5-10.1 LIPID PROFILE (CORONARY RISK)2018-10-10 05:10:00* Test Item Value Reference Range Comments TRIGLYCERIDES (test code=TRIG) mg/dL 20-150 CHOLESTEROL (test code=CHOL) mg/dL 0-200 CHOLESTEROL/HDL RATIO (test code=CHOLHDL) RATIO 0-4.9 HDL CHOLESTEROL (test code=HDL) mg/dL 40-60 LIPOPROTEIN LDL (test code=LDL) mg/dL 100-129 [id number] 05:10:00* Test Item Value Reference Range Comments PHOSPHORUS (test code=PHOS) mg/dL 2.5-4.9 [id number] 05:10:00* Test Item Value Reference Range Comments MAGNESIUM (test code=MAG) mg/dL 1.8-2.4 THYROID PROFILE [id number] 05:10:00* Test Item Value Reference Range Comments T3 UPTAKE (test code=T3UP) % 30.0-40.0 T4 (THYROXINE) (test code=T4) ug/dL 4.5-13.9 T7 (FREE THYROXINE INDEX) (test code=T7) FTI 1.3-5.1 THYROID STIMULATING HORMONE (test code=TSH) uIU/mL 0.36-3.74 CBC W/AUTO [id number] 04:56:00* Test Item Value Reference Range Comments WHITE BLOOD CELL (test code=WBC) 3.0 K/mm3 4.5-12.5 RED BLOOD CELL (test code=RBC) 5.03 mill/mm3 3.7-5.2 HEMOGLOBIN (test code=HGB) 11.7 gram/dL 11.5-15.5 HEMATOCRIT (test code=HCT) 37.9 % 36.0-46.0 MEAN CELL VOLUME (test code=MCV) 75.3 fL 80-98 MEAN CELL HGB (test code=MCH) 23.3 picogram 27.0-33.0 MEAN CELL HGB CONCETRATION (test code=MCHC) 30.9 gram/dL 33.0-36.0 RED CELL DISTRIBUTION WIDTH (test code=RDW) 15.0 % 11.6-16.2 RED CELL DISTRIBUTION WIDTH SD (test code=RDW-SD) 40.7 fL 37.0-51.0 PLATELET COUNT (test code=PLT) 196 K/mm3 150-450 MEAN PLATELET VOLUME (test code=MPV) 9.3 fL 6.7-11.0 NEUTROPHIL % (test code=NT%) 34.6 % 39.0-69.0 IMMATURE GRANULOCYTE % (test code=IG%) 0.3 % 0.0-5.0 LYMPHOCYTE % (test code=LY%) 48.7 % 25.0-55.0 MONOCYTE % (test code=MO%) 11.0 % 0.0-10.0 EOSINOPHIL % (test code=EO%) 4.7 % 0.0-5.0 BASOPHIL % (test code=BA%) 0.7 % 0.0-1.0 NUCLEATED RBC % (test code=NRBC%) 0.0 % 0-0 NEUTROPHIL # (test code=NT#) 1.04 K/mm3 1.8-7.7 IMMATURE GRANULOCYTE # (test code=IG#) 0.01 x10 3/uL 0-0.03 LYMPHOCYTE # (test code=LY#) 1.46 K/mm3 1.0-5.0 MONOCYTE # (test code=MO#) 0.33 K/mm3 0-0.8 EOSINOPHIL # (test code=EO#) 0.14 K/mm3 0.0-0.5 BASOPHIL # (test code=BA#) 0.02 K/mm3 0.0-0.2 NUCLEATED RBC # (test code=NRBC#) 0.00 K/mm3 0.0-0.1 - CT HEAD/BRAIN W/O [id number] 04:53:00 Name: BRII FAITH [facility] : 1945 Age/S: 73 / F [address] [facility] Unit #: [id number] Loc: [place] [address] Phys: Drew Paulson MD Acct: [id number] Dis Date: Status: ADM IN PHONE #: [phone] Exam Date: 10/10/2018 0440 FAX #: [phone] Reason: f/u hemorrhage EXAMS: CPT CODE: [id number] CT HEAD/BRAIN W/O CONT [id number] HISTORY: f/u hemorrhage TECHNIQUE: Noncontrast 2.[address] of the head. Examination acquired within 24 hours of arrival. Automated exposure control for dose reduction. COMPARISON: CT head 10/09/2018 FINDINGS: There is stable intraparenchymal hemorrhage in the left globus pallidus that measures 1.1 x 0.8 cm in size. 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 Chronic microvascular ischemic changes are seen in the periventricular white matter. No mass effect or midline shift is seen. Visualized paranasal sinuses are clear. Mastoid air cells and middle ear cavities are clear. Orbital contents are unremarkable. Calvarium and skull base are intact. IMPRESSION: No significant interval change. Stable left globus pallidus acute hemorrhage. at 0453 Reported and signed by: Mike Garduno M.D. CC: Mark Lim; Drew Paulson MD Technologist:IONA VANESSA CT CTDI: DLP: Trnscb Date/Time: 10/10/2018 (0453) [email or web address] Orig Print D/T: S: 10/10/2018 (0450) PAGE 1 Signed Report - CT HEAD/BRAIN W/O [id number] 07:51:00 Name: BRII FAITH [facility] : 1945 Age/S: 73 / F [address] [facility] [address] Unit #: [id number] Loc: [address] Phys: Karely Morgan MD [place], [place] [address] Acct: [id number] Di s Date: Status: REG ER PHONE #: Exam Date: 10/09/2018 5932 FAX #: Reason: slurred speech EXAMS: CPT CODE: [id number] CT HEAD/BRAIN W/O CONT 75048 HISTORY: slurred speech TECHNIQUE: Noncontrast 2.[address] of the head. Examination acquired within 24 hours of arrival. Automated exposure control for dose reduction. COMPARISON: None FINDINGS: There is an intraparenchymal hemorrhage in the left basal ganglia (series 2 image 16) that measures 1.1 x 0.8 cm in size. There is also an old is chemic infarct in the head of the left caudate nucleus. Chronic microvascu lar ischemic changes are seen in the periventricular white matter. N o mass effect or midline shift is seen. Visualized paranasal sinus es are clear. Mastoid air cells and middle ear cavities are clear. Orbital contents are unremarkable. Calvarium and skull base are intact. IMPRESSION: Acute intraparenchymal hemorrhage in the left basal ganglia. No mass effect or midline shift. Chronic microvascular ischemic changes of the periventricular white matter. 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 at 0 751 Reported and signed by: Donavan Bautista MD CC: Galo Portillo si, MD; Mark Lim Technologist:June Quiroz(R)(CT) CTDI: 33.38 DLP: 580.58 Trnscb Date/Time: 10/09/2018 (0751) peter [email or web address] Orig Print D/T: S: 10/09/2018 (0752) PAGE 1 Signed Report BASIC METABOLIC [id number] 07:48:00* Test Item Value Reference Range Comments SODIUM (test code=NA) 138 mmol/L 136-145 POTASSIUM (test code=K) 5.2 mmol/L 3.5-5.1 NO HEMOLYSIS. V.LAB.PG 10/09/18 0739 CHLORIDE (test code=CL) 101.0 mmol/L 98-107 CARBON DIOXIDE (test code=CO2) 27.3 mmol/L 21-32 ANION GAP (test code=GAP) 15 mmol/L 10-20 GLUCOSE (test code=GLU) 114 mg/dL 70-110 BLOOD UREA NITROGEN (test code=BUN) 13 mg/dL 7-22 GLOMERULAR FILTRATION RATE (test code=GFR) > 60 mL/min >=60 Estimated GFR by using Modified MDRD formula.Chronic kidney disease is defined as either kidney damageor GFR <60 mL/min/1.73 m2 for >3 months. CREATININE (test code=CREAT) 0.91 mg/dL 0.55-1.02 Note change in reference range due to change in reagent. BUN/CREATININE RATIO (test code=BUN/CREA) 14.3 10-20 CALCIUM (test code=CA) 9.9 mg/dL 8.5-10.1 [id number] 07:48:00* Test Item Value Reference Range Comments TROPONIN-I (test code=TROPI) <0.015 ng/mL 0-0.045 HEPATIC FUNCTION [id number] 07:47:00* Test Item Value Reference Range Comments TOTAL PROTEIN (test code=PROT) 7.7 gram/dL 6.1-7.8 ALBUMIN (test code=ALB) 4.4 g/dL 3.3-4.4 GLOBULIN (test code=GLOB) 3.3 G/DL 1-10 ALBUMIN/GLOBULIN RATIO (test code=A/G) 1.3 0.75-1.50 BILIRUBIN TOTAL (test code=BILT) 0.40 mg/dL 0.2-1.2 BILIRUBIN DIRECT (test code=BILD) 0.10 mg/dL 0.0-0.30 SGOT/AST (test code=AST) 32 U/L 10-39 SGPT/ALT (test code=ALT) 27 U/L 10-69 ALKALINE PHOSPHATASE TOTAL (test code=ALKP) 53 U/L 50-139 PROTHROMBIN [id number] 07:42:00* Test Item Value Reference Range Comments PROTHROMBIN TIME PATIENT (test code=PTP) 10.3 seconds 9.0-13.0 INTERNATIONAL NORMAL RATIO (test code=INR) 1.1 0.8-1.2 The therapeutic range for oral anticoagulant therapy formost indications is an international normalized ratio (INR)of between 2.0 and 3.0. The recommended therapeutic INRrange for various clinical situations is listed below: Clinical Situation INR range Pulmonary e mbolism treatment (2.0-3.0)Venous thrombosis treatmentVenous thrombosis prophylaxis (high risk surgery)Prevention of systemic embolism from: Acute myocardial infarction Valvular heart disease Atrial fibrillation Mechanical prosthetic heart valves (2.5-3.5) IS PATIENT ON ANTICOAGULANTS? NTHROMBOPLASTIN TIME [id number] 07:42:00* Test Item Value Reference Range Comments THROMBOPLASTIN TIME PARTIAL (test code=PTT) 24.2 seconds 25.5-34.3 Therapeutic Range for patients on Heparin Therapy is 2 to2.5 times their baseline PTT level. IS PATIENT ON ANTICOAGULANTS? NBASIC METABOLIC [id number] 07:39:00* Test Item Value Reference Range Comments SODIUM (test code=NA) 138 mmol/L 136-145 POTASSIUM (test code=K) 5.2 mmol/L 3.5-5.1 NO HEMOLYSIS. V.LAB.PG 10/09/18 0739 CHLORIDE (test code=CL) 101.0 mmol/L 98-107 CARBON DIOXIDE (test code=CO2) 27.3 mmol/L 21-32 ANION GAP (test code=GAP) 15 mmol/L 10-20 GLUCOSE (test code=GLU) 114 mg/dL 70-110 BLOOD UREA NITROGEN (test code=BUN) 13 mg/dL 7-22 GLOMERULAR FILTRATION RATE (test code=GFR) > 60 mL/min >=60 Estimated GFR by using Modified MDRD formula.Chronic kidney disease is defined as either kidney damageor GFR <60 mL/min/1.73 m2 for >3 months. CREATININE (test code=CREAT) 0.91 mg/dL 0.55-1.02 Note change in reference range due to change in reagent. BUN/CREATININE RATIO (test code=BUN/CREA) 14.3 10-20 CALCIUM (test code=CA) 9.9 mg/dL 8.5-10.1 [id number] 07:39:00* Test Item Value Reference Range Comments TROPONIN-I (test code=TROPI) ng/mL 0-0.045 CBC W/AUTO [id number] 07:30:00* Test Item Value Reference Range Comments WHITE BLOOD CELL (test code=WBC) 3.4 K/mm3 4.5-12.5 RED BLOOD CELL (test code=RBC) 5.27 mill/mm3 3.7-5.2 HEMOGLOBIN (test code=HGB) 12.8 gram/dL 11.5-15.5 HEMATOCRIT (test code=HCT) 39.4 % 36.0-46.0 MEAN CELL VOLUME (test code=MCV) 74.8 fL 80-98 MEAN CELL HGB (test code=MCH) 24.3 picogram 27.0-33.0 MEAN CELL HGB CONCETRATION (test code=MCHC) 32.5 gram/dL 33.0-36.0 RED CELL DISTRIBUTION WIDTH (test code=RDW) 15.3 % 11.6-16.2 RED CELL DISTRIBUTION WIDTH SD (test code=RDW-SD) 41.4 fL 37.0-51.0 PLATELET COUNT (test code=PLT) 225 K/mm3 150-450 MEAN PLATELET VOLUME (test code=MPV) 9.2 fL 6.7-11.0 NEUTROPHIL % (test code=NT%) 43.4 % 39.0-69.0 LYMPHOCYTE % (test code=LY%) 41.5 % 25.0-55.0 MONOCYTE % (test code=MO%) 8.9 % 0.0-10.0 EOSINOPHIL % (test code=EO%) 5.3 % 0.0-5.0 BASOPHIL % (test code=BA%) 0.9 % 0.0-1.0 NEUTROPHIL # (test code=NT#) 1.46 K/mm3 1.8-7.7 LYMPHOCYTE # (test code=LY#) 1.40 K/mm3 1.0-5.0 MONOCYTE # (test code=MO#) 0.30 K/mm3 0-0.8 EOSINOPHIL # (test code=EO#) 0.18 K/mm3 0.0-0.5 BASOPHIL # (test code=BA#) 0.03 K/mm3 0.0-0.2
== END 2019-05-06 12:03 | disposition home or self-care (01) ==
LOC: MED/SURG3 12:47
PROVIDERS: ADMIT Internal Medicine Critical Care Medicine; ATTEND Internal Medicine Critical Care Medicine
DX: J44.1 Chronic obstructive pulmonary disease with (acute) exacerbation (principal); D50.0 Iron deficiency anemia secondary to blood loss (chronic); Z99.81 Dependence on supplemental oxygen; Z90.2 Acquired absence of lung [part of]; E44.0 Moderate protein-calorie malnutrition; Z68.1 Body mass index [BMI] 19.9 or less, adult
CPT/HCPCS: 36415 ×2; 71046; 71260; 80053 ×2; 81001; 84134; 85025 ×2; 85610; 85730; 87086; 87400; 94640 ×8; 97116 ×3; 97139; 97162; 97530; G0378 ×4; J0456 ×2; J0696 ×3; J2920 ×3; J2930 ×2; J7050; Q9967; S0164 ×3